=== PATIENT | female | born 1945 | race Caucasian/White ===

== ENCOUNTER 2018-11-04 09:03 | Outpatient (CLI) | payer MEDICARE, SELFPAY ==
[2018-11-04 11:17] LABS: HCT 42.6 % (36.0-46.0); HGB 13.5 g/dL (12.0-15.5); Mean Corp. HGB Concentration 31.7 g/dL (32.0-36.0); Mean Corpuscular Hemoglobin 29.7 pg (27.0-33.0); Mean Corpuscular Volume 93.8 fL (80-95); Mean Platelet Volume 12.2 fL (8.0-11.0); Platelet Count 237 x1000/uL (130-400); RBC 4.54 m/cumm (4.00-5.20); RBC Distribution Width 13.5 % (11.7-14.6)
[2018-11-04 11:31] LABS: ALT 26 U/L (12-78); AST 23 U/L (15-37); Albumin 3.6 g/dL (3.4-5.0); Alkaline Phosphatase 83 U/L (46-116); Anion Gap 6.9 mmol/L (3-11); BUN 18 mg/dL (7-18); CO2 30.1 mmol/L (21.0-32.0); CREATININE 0.71 mg/dL (0.55-1.02); Calcium 9.2 mg/dL (8.5-10.1); Chloride 105 mmol/L (98-107); Cholesterol 174 mg/dL (50-200); Glucose 84 mg/dL (70-100); HDL Cholesterol 66 mg/dL (40-60); LDL CHOLESTEROL 92 mg/dL (<100); Potassium 4.9 mmol/L (3.5-5.1); Sodium 142 mmol/L (136-145); Total Protein 6.6 g/dL (6.4-8.2); Triglyceride 51 mg/dL (30-150)
== END 2018-11-04 09:23 ==
PROVIDERS: PCP Family Medicine; Visit Provider Family Medicine
DX: R07.9 Chest pain, unspecified (principal); E78.5 Hyperlipidemia, unspecified; I10 Essential (primary) hypertension; M54.2 Cervicalgia
CPT/HCPCS: 36415; 80053; 80061; 83721; 85027

== ENCOUNTER 2019-07-10 02:22 | Outpatient (CLI) | payer MEDICARE, SELFPAY ==
[2019-07-10 11:43] LABS: ALT 30 U/L (12-78); AST 12 U/L (15-37); Albumin 3.4 g/dL (3.4-5.0); Alkaline Phosphatase 70 U/L (46-116); Anion Gap 6.9 mmol/L (3-11); BUN 20 mg/dL (7-18); Bilirubin, Total 1.1 mg/dL (0.2-1.0); CO2 29.1 mmol/L (21.0-32.0); CREATININE 0.73 mg/dL (0.55-1.02); Calcium 8.9 mg/dL (8.5-10.1); Calculated LDL 88 mg/dL; Chloride 108 mmol/L (98-107); Cholesterol 167 mg/dL (50-200); Glucose 91 mg/dL (70-100); HDL Cholesterol 72 mg/dL (40-60); Potassium 5.1 mmol/L (3.5-5.1); Sodium 144 mmol/L (136-145); Total Protein 6.4 g/dL (6.4-8.2); Triglyceride 37 mg/dL (30-150)
== END 2019-07-10 02:42 ==
PROVIDERS: PCP Family Medicine; Visit Provider Family Medicine
DX: I51.81 Takotsubo syndrome (principal)
CPT/HCPCS: 36415; 80053; 80061; 83721

== ENCOUNTER 2019-10-08 02:09 | Outpatient (CLI) | payer MEDICARE, SELFPAY ==
[2019-10-08 10:36] LABS: Abs Immature Grans 0.01 k/cumm (0.0-0.09); Absolute Basophil Count 0.05 k/cumm (0.0-0.2); Absolute Eosinophil Count 0.13 k/cumm (0.0-0.7); Absolute Lymphocyte Count 1.75 k/cumm (1.2-3.4); Absolute Monocyte Count 0.62 k/cumm (0.11-0.7); Absolute Neutrophil Count 3.55 k/cumm (1.2-6.7); Basophils % 0.8; Eosinophils % 2.1; HCT 43.8 % (36.0-46.0); Immature Grans % 0.2; Lymphocytes % 28.6; Mean Platelet Volume 12.1 fL (8.0-11.0); Monocytes % 10.1; Neutrophils % 58.2; Platelet Count 254 x1000/uL (130-400); RBC 4.66 m/cumm (4.00-5.20); RBC Distribution Width 14.3 % (11.7-14.6); White Blood Cell Count 6.11 k/cumm (4.4-10.8)
[2019-10-08 11:27] LABS: ESR 12 mm/hr (0-30)
[2019-10-08 11:56] LABS: ALT 32 U/L (14-59); AST 19 U/L (15-37); Albumin 3.8 g/dL (3.4-5.0); Alkaline Phosphatase 71 U/L (46-116); Anion Gap 4.9 mmol/L (3-11); BUN 11 mg/dL (7-18); Bilirubin, Total 0.9 mg/dL (0.2-1.0); CO2 30.1 mmol/L (21.0-32.0); CREATININE 0.72 mg/dL (0.55-1.02); Calcium 9.3 mg/dL (8.5-10.1); Chloride 108 mmol/L (98-107); Glucose 87 mg/dL (70-100); Potassium 5.7 mmol/L (3.5-5.1); Sodium 143 mmol/L (136-145); TSH (W/Ref FT4) 1.77 uIU/mL (0.36-3.74); Total Protein 6.6 g/dL (6.4-8.2)
[2019-10-09 14:34] LABS: Lyme Ab w Rflx to Lyme Confirm Negative (Negative)
== END 2019-10-08 02:29 ==
PROVIDERS: PCP Family Medicine; Visit Provider Family Medicine
DX: E78.5 Hyperlipidemia, unspecified (principal); R51 Headache; R79.89 Other specified abnormal findings of blood chemistry
CPT/HCPCS: 36415; 80053; 85652; 84443; 85025; 86618

== ENCOUNTER 2019-10-13 09:57 | Outpatient (CLI) | payer MEDICARE, SELFPAY ==
[2019-10-13 13:42] LABS: Potassium 5.1 mmol/L (3.5-5.1)
== END 2019-10-13 10:17 ==
LOC: LBO 09:59 → LOS 09:59
PROVIDERS: PCP Family Medicine; Visit Provider Family Medicine
DX: E87.5 Hyperkalemia (principal)
CPT/HCPCS: 36415; 84132

== ENCOUNTER 2020-01-28 11:42 | Outpatient (CLI) | payer MEDICARE, SELFPAY ==
[2020-01-28 13:28] LABS: ALT 29 U/L (14-59); AST 15 U/L (15-37); Albumin 3.9 g/dL (3.4-5.0); Alkaline Phosphatase 67 U/L (46-116); Anion Gap 7.8 mmol/L (3-11); BUN 21 mg/dL (7-18); Bilirubin, Total 1.4 mg/dL (0.2-1.0); CO2 29.2 mmol/L (21.0-32.0); CREATININE 0.69 mg/dL (0.55-1.02); Calcium 9.2 mg/dL (8.5-10.1); Calculated LDL 94 mg/dL (<100); Chloride 107 mmol/L (98-107); Cholesterol 178 mg/dL (<200); Glucose 81 mg/dL (74-106); HDL Cholesterol 75 mg/dL (40-60); Potassium 5.7 mmol/L (3.5-5.1); Sodium 144 mmol/L (136-145); Total Protein 6.6 g/dL (6.4-8.2); Triglyceride 48 mg/dL (<150)
== END 2020-01-28 12:02 ==
PROVIDERS: PCP Family Medicine; Visit Provider Family Medicine
DX: E78.5 Hyperlipidemia, unspecified (principal); I25.10 Atherosclerotic heart disease of native coronary artery without angina pectoris
CPT/HCPCS: 36415; 80053; 80061

== ENCOUNTER 2020-02-02 01:52 | Outpatient (CLI) | payer MEDICARE, SELFPAY ==
[2020-02-02 11:51] LABS: Potassium 5.1 mmol/L (3.5-5.1)
== END 2020-02-02 02:12 ==
PROVIDERS: PCP Family Medicine; Visit Provider Family Medicine
DX: E87.5 Hyperkalemia (principal)
CPT/HCPCS: 36415; 84132

== ENCOUNTER 2020-08-03 02:41 | Outpatient (CLI) | payer MEDICARE, SELFPAY ==
[2020-08-03 11:30] LABS: HCT 42.3 % (36.0-46.0); HGB 13.5 g/dL (11.2-15.7); MCH 29.9 pg (27.0-33.0); MCHC 31.9 % (32.0-36.0); MCV 93.8 fL (80-95); MPV 11.8 fL (8.0-11.0); Platelet Count 250 10^3/uL (130-400); RBC 4.51 10^6/uL (3.93-5.22); RDW 13.4 % (11.7-14.6); RDW-SD 45.6 fL; WBC 7.81 10^3/uL (4.4-10.8)
[2020-08-03 11:32] LABS: Bilirubin Negative (Negative); Blood Trace-intact (Negative); Clarity Clear (Clear); Glucose Negative (Negative); Ketones Negative (Negative); Leukocyte Esterase Negative (Negative); Nitrite Negative (Negative); Specific Gravity 1.015 (1.005-1.025); Urobilinogen 0.2 EU/dL (Up TO 0.2); pH 5.5 (5-8)
[2020-08-03 11:46] LABS: Bacteria Negative HPF (Negative); C & S Indicated? No; Casts Negative LPF (Negative); Crystals Negative HPF (Negative); Epithelial Cells Rare HPF (Negative); Mucus Trace (Negative); Other Cells Negative (Negative); WBC 0-2 HPF (0-5)
[2020-08-03 12:38] LABS: ALT 29 U/L (14-59); AST 21 U/L (15-37); Albumin 3.8 g/dL (3.4-5.0); Alkaline Phosphatase 67 U/L (46-116); Anion Gap 6.4 mmol/L (3-11); BUN 20 mg/dL (7-18); Bilirubin, Total 1.5 mg/dL (0.2-1.0); CO2 29.6 mmol/L (21.0-32.0); CREATININE 0.74 mg/dL (0.55-1.02); Calcium 9.3 mg/dL (8.5-10.1); Chloride 106 mmol/L (98-107); Glucose 63 mg/dL (74-106); Sodium 142 mmol/L (136-145); TSH (W/Ref FT4) 1.49 uIU/mL (0.36-3.74); Total Protein 6.6 g/dL (6.4-8.2)
== END 2020-08-03 03:01 ==
PROVIDERS: PCP Family Medicine; Visit Provider Family Medicine
DX: R52 Pain, unspecified (principal); R63.4 Abnormal weight loss; R10.9 Unspecified abdominal pain; E78.5 Hyperlipidemia, unspecified
CPT/HCPCS: 36415; 80053; 85027; 81003; 81015; 84443

== ENCOUNTER 2020-08-05 04:29 | Outpatient (CLI) | payer MEDICARE, SELFPAY ==
--- NOTE | 2020-08-05 06:45 | DI.CT_ITS ---
EXAM: CT ABDOMEN PELVIS W CLINICAL HISTORY: weight loss/ h/o endometrial pre cancer,ABD PAIN,R63.4,R10.9. TECHNIQUE: Imaging Protocol: Axial computed tomography images with coronal and sagittal reformatted images were created and reviewed CONTRAST MATERIAL: Intravenous: Omnipaque 350 Contrast volume:100 cc Oral: yes / COMPARISON: CR RT HIP COMPLETE AP PELVIS from 04/24/2017 CR RT HIP COMPLETE AP PELVIS from 05/22/2017 MR MRI - PELVIS WO CONTRAST from 07/18/2017 FINDINGS: ABDOMEN: Lung Bases: Normal where visualized. Liver: Normal density. No measurable mass. Gallbladder and biliary tract: No radiodense calculus or dilation. Pancreas: Normal density, no abnormal calcifications or inflammatory process. Spleen: Normal. Kidneys: Normal size, contour and axis. No radiodense stones or obstructive uropathy. No masses seen. Multiple tiny renal cysts. Adrenal glands: No masses seen. Abdominal Aorta: Abdominal portion non-dilated. PELVIS: There is a right hip prosthesis which creates artifact in the low pelvis. This obscures visualization of the right side of the bladder and perirectal region. Bladder: Symmetric distention, no gross wall thickening. Bowel: No obstruction or bowel wall thickening. Normal appendix. Normal quantity of stool. Peritoneal cavity: No ascites, collection or mesenteric inflammatory response. Bones: Hemangioma in the T12 vertebral body. The bones appear osteoporotic. There is a sclerotic le gela in the S2 segment, likely representing a bone island. There are degenerative changes of the SI joints as well as left hip joint. Reproductive organs: Status post hysterectomy. Ovaries not seen. Lymph nodes: Unremarkable. Impression: No evidence of mass, metastatic disease or other acute abnormality. Artifact from hip prosthesis florian its visualization of the low pelvis. RADIATION DOSE DELIVERED: Total DLP DATA REPOSITORY: All CT scans at this facility are submitted to the National Radiology Data Registry (NRDR) Dose Index Registry (DIR) with the [employer] (A[employer]). RADIATION OPTIMIZATION: All CT scans at this facility use at least one of these dose optimization te chniques: automated exposure control; mA and/or kV adjustment per patient size (includes targeted exa ms where dose is matched to clinical indication); or iterative reconstruction.
[2020-08-05] MEDS: Omnipaque 350 MG/ML 50 ML BTL PO (08:03)
[2020-08-05] MEDS: Omnipaque 350 MG/ML 100 ML BTL IJ (08:48)
[2020-08-05] MEDS: Normal Saline - Diluent 50 ML VIAL IV (08:49)
[2020-08-05] MEDS: Breeza Beverage 473 ML BTL PO (08:52)
[2020-08-05] MEDS: Normal Saline Flush 10 ML SYR IVP (08:53)
== END 2020-08-05 04:49 ==
PROVIDERS: PCP Family Medicine; Visit Provider Family Medicine
DX: R10.9 Unspecified abdominal pain (principal); R63.4 Abnormal weight loss
CPT/HCPCS: 74177; J3490; Q9967

== ENCOUNTER 2020-09-02 02:39 | Outpatient (CLI) | payer MEDICARE, SELFPAY ==
[2020-09-02 15:03] LABS: Bilirubin Negative (Negative); Blood Moderate (Negative); Clarity Clear (Clear); Glucose Negative (Negative); Ketones Negative (Negative); Leukocyte Esterase Negative (Negative); Nitrite Negative (Negative); Urobilinogen 0.2 EU/dL (Up TO 0.2)
[2020-09-02 15:24] LABS: Bacteria Negative HPF (Negative); C & S Indicated? No; Crystals Negative HPF (Negative); Epithelial Cells Negative HPF (Negative); Mucus Negative (Negative); RBC 0-2 HPF (0-2); WBC Negative HPF (0-5)
== END 2020-09-02 02:59 ==
PROVIDERS: PCP Family Medicine; Visit Provider Family Medicine
DX: R31.9 Hematuria, unspecified (principal)
CPT/HCPCS: 81003; 81015

== ENCOUNTER 2021-03-26 19:41 | Emergency (ER) | payer MEDICARE, SELFPAY ==
--- NOTE | 2021-03-26 19:45 | DI.RAD_ITS ---
Exam(s) XR FOOT RT COMPLETE EXAM: XR FOOT RT COMPLETE CLINICAL HISTORY: Fall, R/O Fracture. TECHNIQUE: 2D digital imaging was performed. COMPARISON: No exams were available for comparison FINDINGS: BONES: No acute fracture is present. No bony destructive lesion is seen. JOINTS: No dislocation present. Mild degenerative changes are seen at the 1st MTP joint. SOFT TISSUE: Normal. IMPRESSION: No acute fracture or dislocation. DATA REPOSITORY: RADIATION DOSE DELIVERED:
[2021-03-26 19:48] VITALS: BP 197/76; PULSE 72; RESP 14; TEMP 36.6; O2SAT 97
--- NOTE | 2021-03-26 19:57 | W.ED.GENAD ---
Discharge Plan Disposition Patient Disposition: HOME Condition: Stable Discharge Details Clinical Impression: Other sprain of right foot, initial encounter Primary Care Provider: Nicol Funes ED Provider: Sylvia Patel Home Meds and New Rx's Prescriptions: No Action acetaminophen [Tylenol Extra Strength] 500 MG tablet 2 tab PO BID PRN RF: 0 Betimol 15 ML drops 1 drp OU BID RF: 0 amoxicillin 500 mg tablet 2,000 mg PO ONCE Qty: 4 RF: 12 metoprolol succinate 25 mg tablet extended release 24 hr 25 mg PO DAILY Qty: 90 RF: 4 atorvastatin 10 mg tablet 10 mg PO DAILY Qty: 90 RF: 4 nitroglycerin [Nitrostat] 0.4 mg tablet, sublingual 0.4 mg Sublingual PRN MDD 3 Qty: 25 RF: 0 epinephrine [EpiPen 2-Jerry] 0.3 mg/0.3 mL auto-injector 0.3 mg IM ONCE Qty: 2 RF: 0 Discharge Instructions Instructions: Foot Sprain (ED) Additional Instructions: Rest, Ice, Compression, and Elevation. Use walking boot as directed for comfort. Please take Tylenol or Ibuprofen with food every 4-6 hours as needed for pain and swelling. The official radiology report is not back yet if it is different we will give you a call. Please follow-up with orthopedics if your foot continues to bother you after 2 weeks. Referrals: Nicol Funes MD, [place] [Primary Care Provider] - Christiano Pond MD [ [facility] STAFF PHYSICIAN] - Medical Decision Making 76-year-old female presents to the ER chief complaint of right foot pain status post trip and fall while gardening approximately 3 hours prior to arrival. Has tried Tylenol elevation and ice with little to no relief. Pain gets worse with ambulation and weight bearing. Complaining of pain at the ball of her foot no obvious deformity. Denies any other injuries or pain at this time COMPARISON: US RIGHT EXTREMITY ULTRASOUND 10/20/2017 9:24 AM FINDINGS: Bones/joints: No suspicious osseous lytic or blastic lesion. No acute fracture or dislocation. Alignment is preserved. There are mild degenerative changes of the right 1st MTP joint with mild degenerative joint space narrowing and subchondral sclerosis at the base of the proximal 1st phalanx. Incidentally noted bipartite tibial sesamoid. Soft tissues: No focal abnormality. IMPRESSION: 1. No acute osseous finding. 2. Mild degenerative changes of the right 1st MTP joint. Thank you for allowing us to participate in the care of your patient. Dictated and Authenticated by: Benjie Neil MD Patient placed in a ankle walking boot instructed on RICE procedures and follow-up with Ortho in 2 weeks if continued pain. I did discuss our radiologist will do an overread and will notify her if any discrepancies or differences. Patient verbalized understanding. HPI General Mode of arrival: wheelchair. Date/Time Provider Initiated Documentation: 03/26/21 19:41. Limitations to Documentation: no limitations. Information obtained by: patient. HPI Narrative: 76-year-old female presents to the ER chief complaint of right foot pain status post trip and fall while gardening approximately 3 hours prior to arrival. Has tried Tylenol elevation and ice with little to no relief. Pain gets worse with ambulation and weight bearing. Complaining of pain at the ball of her foot no obvious deformity. Denies any other injuries or pain at this time Related Data Home Medications Medication Instructions Recorded Confirmed acetaminophen [Tylenol Extra 2 tab PO BID PRN tab-cap 04/30/13 03/26/21 Strength] timolol [Betimol 0.5%] 1 drp OU BID drp 04/30/13 03/26/21 amoxicillin 500 mg tablet 2,000 mg PO ONCE #4 tab-cap 07/22/19 03/26/21 atorvastatin 10 mg tablet 10 mg PO DAILY #90 tab-cap 09/26/20 03/26/21 metoprolol succinate 25 mg 25 mg PO DAILY #90 tab 09/26/20 03/26/21 tablet,extended release 24 hr nitroglycerin 0.4 mg sublingual 0.4 mg SUBLINGUAL PRN #25 tab MDD 3 09/26/20 03/26/21 tablet epinephrine 0.3 mg/0.3 mL 0.3 mg IM ONCE #2 syringe 12/16/20 03/26/21 injection, auto-injector Previous Rx's Medication Instructions Recorded amoxicillin 500 mg tablet 2,000 mg PO ONCE #4 tab-cap 07/22/19 atorvastatin 10 mg tablet 10 mg PO DAILY #90 tab-cap 09/26/20 metoprolol succinate 25 mg 25 mg PO DAILY #90 tab 09/26/20 tablet,extended release 24 hr nitroglycerin 0.4 mg sublingual 0.4 mg SUBLINGUAL PRN #25 tab MDD 3 09/26/20 tablet epinephrine 0.3 mg/0.3 mL 0.3 mg IM ONCE #2 syringe 12/16/20 injection, auto-injector Allergies Allergy/AdvReac Type Severity Reaction Status Date / Time venom-wasp Allergy Severe ANAPHYLAXIS Unverified 09/22/20 14:48 oxytetracycline Allergy Unknown Unverified 03/26/21 19:51 morphine AdvReac Unknown INTOLERANT Unverified 03/26/21 19:51 General Stated Complaint: Orthopedic MARILYN: 4 Review of Systems All systems reviewed & are unremarkable except as noted in HPI and below Musculoskeletal Musculoskeletal: Reports arthralgias (Foot) [facility] Medical History Anxiety (05/14/13) Arthralgia Avascular necrosis of bone of right hip (07/22/17) Carpal tunnel syndrome 05/14/13 [facility] nerve conduction studies 2012, right hand pain ([facility]) Cervical pain (neck) (02/18/17) Chest pain (12/28/14) a. recurrent b. elevations in the past to a max troponin of 0.77 in our system, though Malina reports she has been >1 at [facility] Closed fracture of neck of right femur with delayed healing (06/26/17) Diverticulitis of colon 10/24/97 Dupuytrens contracture DVT (deep venous thrombosis) (10/19/17) Garden stage I closed subcapital fracture of right femur Glaucoma Grief (12/28/14) a. son from TBI, falling coming out of the hospital where he had been hospitalized for end-stage alcoholism (chronic ataxia) b. his birthday is this coming weekend (would have been 43) c. recent attendance at a also triggered grief Headache Hyperlipidemia Hypertension a. no evidence of CAD, but no cath x 10 years Iritis 03/11/09 Malignant neoplasm of skin squamous cell left cheek Osteopenia Sore throat Strep pharyngitis Takotsubo syndrome (01/07/15) recurrent episodes, cath [facility] normal coronaries 12/30/1407/05 [facility] normal stress echo Troponin level elevated (12/28/14) Uveitis (05/14/13) pos HLA B-27 Vasospastic angina Vitamin B 12 deficiency (11/05/14) Surgical History Abdominal hysterectomy H/O surgical procedure a. coronary cath 2001 and 2004 b. hysterectomy for precancerous lesions S/P abdominal hysterectomy Total replacement of hip [facility] 10/11 [facility] 03/11; SCREWS FOR FEMORAL NECK FX Family History Mother , 87 Essential hypertension Dementia Heart disease Hyperlipidemia Father , 69 Heart disease CHF (congestive heart failure) Hyperlipidemia Parkinson disease Sister Essential hypertension Bipolar disorder Depression Heart disease Hyperlipidemia Maternal Grandmother , 57 Stroke Grandfather No problems noted. Paternal Grandfather , 80 No problems noted. Paternal Grandmother , 80 Heart disease Son No problems noted. Son Depression Maternal Cousin Parkinson disease Social History Smoking/Tobacco Use Status: Never Second Hand Exposure: Yes Smoking risk assessment performed?: Yes Alcohol Intake: current Alcohol Intake frequency: a few times a month Alcohol type: wine Drug use: Never Substance use type: does not use Caregiver/Support person: No Household members: spouse Housing: house Pets and animals: Yes Pets and animals: cat(s) What is your relationship status?: How often do you talk on the phone with friends or family?: three or more times per week How often do you get together with friends or relatives?: twice per week How often do you attend confucianist or buddhist services?: decline to answer Do you belong to any clubs or organized social groups?: yes Panel score (0-1 are the most socially isolated patients): 3 What type of physical activity do you participate in: walking Duration: 15-30 minutes/day Frequency: 1-2 times per week Caryn/Zoroastrianism: None Special caryn needs: No Do you feel safe at home: Yes Do you feel safe in your relationship?: Yes Exam Extrem Right lower extremity: foot Details: normal capillary refill, normal to inspection, tenderness and toes with normal ROM Ankle/foot/toe images: 1. Tenderness with palpation Course Vital Signs Vital signs: Vital Signs Temperature 36.6 C 03/26/21 19:48 Pulse 72 03/26/21 19:48 Respiratory Rate 14 03/26/21 19:48 Blood Pressure 197/76 H 03/26/21 19:48 Pulse Oximetry 97 03/26/21 19:48 Temperature 36.6 C 03/26/21 19:48 Temperature Source Oral 03/26/21 19:48 Pulse 72 03/26/21 19:48 Respiratory Rate 14 03/26/21 19:48 Respiratory Effort Non-Labored 03/26/21 19:52 Blood Pressure 197/76 H 03/26/21 19:48 Blood Pressure Position Supine 03/26/21 19:48 Pulse Oximetry 97 03/26/21 19:48 Oxygen Delivery Method Room Air 03/26/21 19:48 Oxygen Flow Rate 0 03/26/21 19:48 Pain Level 5 03/26/21 19:52 Comment 03/26/21 19:48
--- NOTE | 2021-03-26 21:10 | DI.VRAD_ITS ---
PROCEDURE INFORMATION: Exam: XR Right Foot Exam date and time: 03/26/2021 7:53 PM Age: 76 years old Clinical indication: Pain; Foot; Right TECHNIQUE: Imaging protocol: XR Right foot. Views: 3 or more views. COMPARISON: US RIGHT EXTREMITY ULTRASOUND 10/20/2017 9:24 AM FINDINGS: Bones/joints: No suspicious osseous lytic or blastic lesion. No acute fracture or dislocation. Alignment is preserved. There are mild degenerative changes of the right 1st MTP joint with mild degenerative joint space narrowing and subchondral sclerosis at the base of the proximal 1st phalanx. Incidentally noted bipartite tibial sesamoid. Soft tissues: No focal abnormality. IMPRESSION: 1. No acute osseous finding. 2. Mild degenerative changes of the right 1st MTP joint. Dictated and Authenticated by: Benjie Neil MD. Ordering:JEN Ward MD
== END 2021-03-26 22:10 | disposition home or self-care (01) ==
PROVIDERS: Emergency Provider Registered Nurse Emergency; PCP Family Medicine
DX: S93.691A Other sprain of right foot, initial encounter (principal); W01.0XXA Fall on same level from slipping, tripping and stumbling without subsequent striking against object, initial encounter; Y93.H2 Activity, gardening and landscaping
CPT/HCPCS: 29515; 99283; 73630

== ENCOUNTER 2021-06-14 11:13 | Inpatient (IN) | payer MEDICARE, SELFPAY ==
[2021-06-14] VITALS (90 sets, daily range): BP systolic 107–193; BP diastolic 46–134; PULSE 16–68; RESP 8–28; TEMP 35.7–36.6; O2SAT 95–100
--- NOTE | 2021-06-14 11:15 | RT.EKG_ITS ---
APPROVED REPORT Exam: Resting ECG Reason for Exam: chest pain Patient Location: E HR:46 bpm ECG Measurements Heart Rate 46 AXIS MO 206 P 66 QRSd 88 QRS -14 QT 457 T 14 QTc 401 Conclusion Sinus bradycardia...rate< 60 Probable left atrial enlargement...P >50mS, <-0.10mV V1
--- NOTE | 2021-06-14 11:30 | DI.RAD_ITS ---
Exam(s) XR CHEST 2V PA LATERAL EXAM: XR CHEST 2V PA LATERAL CLINICAL HISTORY: central chest pain. TECHNIQUE: 2D digital imaging was performed. COMPARISON: CR CHEST 2 VIEWS PA,LAT from 12/28/2014 FINDINGS: Heart size is normal. The mediastinum is not widened. Lungs are clear. No infiltrates nor pleural effusions. IMPRESSION: No acute pulmonary findings. DATA REPOSITORY: RADIATION DOSE DELIVERED:
--- NOTE | 2021-06-14 11:33 | ED.GENADUL_ITS ---
Discharge Plan Disposition Patient Disposition: [facility] INPATIENT Condition: Stable Discharge Details Clinical Impression: Elevated troponin, History of coronary vasospasm Admit Date/Time: 06/14/21 16:26 Admit Provider: Jesus Reed Attending Provider: Jesus Reed Primary Care Provider: Nicol Funes ED Provider: Wallace Rae Discharge Data Discharge Date/Time-TO BE ENTERED AT DEPARTURE: 06/14/21 23:09 Medical Decision Making <Karthik Robles MD - Last Filed: 06/14/21 13:04> This is a pleasant and delightful 76-year-old female who presents on referral from urgent care. 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 She arrives to the ER for pressure 190/65, pulse 44 and beta-damon, 100% on room air, interactive and in no significant distress. Differential diagnosis in includes recurrent vasospasm/Takotsubo syndrome, followed by Dr. John Stern [facility]. Patient has a history of same including negative cardiac catheterizations in 2001 and 2004. Patient be given 324 mg of aspirin by the urgent care providers. She was placed on a front desk monitor, IV access established, referred for laboratory testing and chest x-ray. Patient does have a elevated indeterminate range troponin of 0.43 with history of it being as high as 2.4. Patient's pain improved. No further intervention required. This does seem most consistent with her previously known vasospasm and will advocate for admission with serial cardiac troponins and likely functional study such as echocardiogram. <Wallace Rae MD - Last Filed: 06/18/21 16:47> 1630 -- At shift change Dr. Robles noted the patient was admitted to the hospitalist service for coronary artery vasospasm with elevated troponin. Second EKG was obtained per protocol which was reviewed and interpreted by me: Please see report, sinus bradycardia 56 bpm, left axis deviation, no significant change compared to prior EKG today. --Spoke with patient about diagnostics and answered questions. Patient notes she has had some waxing and waning chest pain here. Chest pain is currently mild. She has refused nitroglycerin and notes that this has not helped her in the past. She does note oxygen has helped her discomfort in the past. I will apply nasal cannula oxygen. Given uptrending troponin and waxing and chest pain, I will discuss case with [facility] cardiology. 1800-- Called [facility] cardiology, spoke with Dr. Baker ethylbenzene converter helper and discussed ED presentation and course including diagnostics and I requested transfer. Transfer request refused secondary to capacity. He does recommend starting nitroglycerin as well as heparin infusion - will potentially have capacity tomorrow. 181 --I called [facility] transfer center requested transfer. [facility] to assess capacity at this time. Awaiting callback from oleo hasher and renderer. 182 -- Spoke with Dr. Leary, on-call oleo hasher and renderer at [facility], discussed ED presentation course including diagnostic, he agrees with treating with heparin and also recommends loading with Plavix and also treating with amlodipine. He will accept the patient in transfer but unfortunately there are no beds currently available and beds will likely not be available in the short-term. HPI <Karthik Robles MD - Last Filed: 06/14/21 13:04> General Mode of arrival: ambulatory . Date/Time Provider Initiated Documentation: 06/14/21 11:13 . Limitations to Documentation: no limitations . Information obtained by: patient . History of Present Illness 76 year old F presents to the emergency department with the chief complaint of Chest pain, described as similar to prior episodes, Quality is described as dull and constant, and is localized to the chest. Patient started experiencing this hour(s) and it has been constant. No relieving factors improve symptom(s), No exacerbating factors reported . Patient did receive the following treatments prior to arrival, none Related Data Home Medications Medication Instructions Recorded Confirmed acetaminophen [Tylenol Extra 2 tab PO BID PRN tab-cap 04/30/13 06/14/21 Strength] timolol [Betimol 0.5%] 1 drp OU QAM drp 04/30/13 06/14/21 amoxicillin 500 mg tablet 2,000 mg PO ONCE #4 tab-cap 07/22/19 06/14/21 atorvastatin 10 mg tablet 10 mg PO DAILY #90 tab-cap 09/26/20 06/14/21 metoprolol succinate 25 mg 25 mg PO DAILY #90 tab 09/26/20 06/14/21 tablet,extended release 24 hr nitroglycerin 0.4 mg sublingual 0.4 mg SUBLINGUAL PRN #25 tab MDD 3 09/26/20 06/14/21 tablet epinephrine 0.3 mg/0.3 mL 0.3 mg IM ONCE #2 syringe 12/16/20 06/14/21 injection, auto-injector aspirin [Aspir-81] 4 06/14/21 Previous Rx's Medication Instructions Recorded amoxicillin 500 mg tablet 2,000 mg PO ONCE #4 tab-cap 07/22/19 atorvastatin 10 mg tablet 10 mg PO DAILY #90 tab-cap 09/26/20 metoprolol succinate 25 mg 25 mg PO DAILY #90 tab 09/26/20 tablet,extended release 24 hr nitroglycerin 0.4 mg sublingual 0.4 mg SUBLINGUAL PRN #25 tab MDD 3 09/26/20 tablet epinephrine 0.3 mg/0.3 mL 0.3 mg IM ONCE #2 syringe 12/16/20 injection, auto-injector Allergies Allergy/AdvReac Type Severity Reaction Status Date / Time venom-wasp Allergy Severe ANAPHYLAXIS Verified 06/14/21 12:03 oxytetracycline Allergy Unknown Verified 06/14/21 12:03 morphine AdvReac Unknown INTOLERANT Verified 06/14/21 12:03 General Stated Complaint: Chest Pain MARILYN: 2 Review of Systems <Karthik Robles MD - Last Filed: 06/14/21 13:04> Narrative: Previous negative cardiac caths. Recent emotional stressors. Recent GI illness with stomach upset and diarrhea. No other recent illness. 8 systems reviewed and otherwise negative [facility] <Karthik Robles MD - Last Filed: 06/14/21 13:04> Medical History Anxiety (05/14/13) Arthralgia Avascular necrosis of bone of right hip (07/22/17) Carpal tunnel syndrome 05/14/13 [facility] nerve conduction studies 2012, right hand pain ([facility], [facility] Cervical pain (neck) (02/18/17) Chest pain (12/28/14) a. recurrent b. elevations in the past to a max troponin of 0.77 in our system, though Malina reports she has been >1 at [facility] Closed fracture of neck of right femur with delayed healing (06/26/17) Diverticulitis of colon 10/24/97 Dupuytrens contracture DVT (deep venous thrombosis) (10/19/17) Garden stage I closed subcapital fracture of right femur Glaucoma Grief (12/28/14) a. son from TBI, falling coming out of the hospital where he had been hospitalized for end-stage alcoholism (chronic ataxia) b. his birthday is this coming weekend (would have been 43) c. recent attendance at a also triggered grief Headache Hyperlipidemia Hypertension a. 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 coronary cath 2001 and 2004 b. hysterectomy for precancerous lesions S/P abdominal hysterectomy Total replacement of hip [facility]/11 [facility] 03/11; SCREWS FOR FEMORAL NECK FX Family History Mother , 87 Essential hypertension Dementia Heart disease Hyperlipidemia Father , 69 Heart disease CHF (congestive heart failure) Hyperlipidemia Parkinson disease Sister Essential hypertension Bipolar disorder Depression Heart disease Hyperlipidemia Maternal Grandmother , 57 Stroke Grandfather No problems noted. Paternal Grandfather , 80 No problems noted. Paternal Grandmother , 80 Heart disease Son No problems noted. Son Depression Maternal Cousin Parkinson disease Social History Smoking/Tobacco Use Status: Never Second Hand Exposure: Yes Smoking risk assessment performed?: Yes Alcohol Intake: current Alcohol Intake frequency: a few times a month Alcohol type: wine Drug use: Never Substance use type: does not use Caregiver/Support person: No Household members: spouse Housing: house Pets and animals: Yes Pets and animals: cat(s) What is your relationship status?: How often do you talk on the phone with friends or family?: three or more times per week How often do you get together with friends or relatives?: twice per week How often do you attend taoism or synagogue services?: decline to answer Do you belong to any clubs or organized social groups?: yes Panel score (0-1 are the most socially isolated patients): 3 What type of physical activity do you participate in: walking Duration: 15-30 minutes/day Frequency: 1-2 times per week Caryn/Church: None Special caryn needs: No Do you feel safe at home: Yes Do you feel safe in your relationship?: Yes Exam <Karthik Robles MD - Last Filed: 06/14/21 13:04> Narrative Exam Narrative: GEN: awake, alert, oriented 3. Pleasant, well groomed, interactive. HEAD: Normocephalic, atraumatic ENT: Mucous membranes moist, oropharynx unremarkable, External ear exam unremarkable EYES: PERRL, EOMI NECK: Full ROM, no DEVYN, no menigismus CHEST/RESP: Nontender, clear to auscultation bilateral, no wheeze/rhonchi/rales CARDIOVASCULAR: RRR, no murmur, rub mayank. 2+ Rad pulse bilateral ABDOMEN: Soft, nontender, no mass. +Bowel sounds EXT: Full ROM, no edema, no rash Neuro: Grossly normal neurologic exam, conversant, interactive. Psych: Speech fluent, thoughts congruent, affect normal Course <Karthik Robles MD - Last Filed: 06/14/21 13:04> Vital Signs Vital signs: Vital Signs Temperature 36.2 C L 06/14/21 11:18 Pulse 44 L 06/14/21 11:18 Respiratory Rate 19 06/14/21 11:18 Blood Pressure 193/65 H 06/14/21 11:18 Pulse Oximetry 100 06/14/21 11:18 Temperature 36.2 C L 06/14/21 11:18 Temperature Source Skin 06/14/21 11:18 Pulse 44 L 06/14/21 11:18 Respiratory Rate 19 06/14/21 11:18 Respiratory Effort Non-Labored 06/14/21 11:22 Blood Pressure 193/65 H 06/14/21 11:18 Blood Pressure Position Sitting 06/14/21 11:18 Pulse Oximetry 100 06/14/21 11:18 Oxygen Delivery Method Room Air 06/14/21 11:18 Oxygen Flow Rate 0 06/14/21 11:18 Pain Level 4 06/14/21 11:18 <Wallace Rae MD - Last Filed: 06/18/21 16:47> Critical Care Time Critical Care Time: Yes Total Critical Care Time: 38 Attestation: I spent greater than 38 minutes addressing this patient's immediate life threats. Please see MDM section of note. This time was spent engaged in work directly related to the patient's care, exclusive of separate procedures, and failure to initiate these interventions would have likely resulted in clinically significant or life threatening deterioration in the patient's condition.
[2021-06-14 11:40] LABS: Abs Immature Grans 0.02 10^3/uL (0.0-0.06); Absolute Eosinophil Count 0.12 10^3/uL (0.0-0.7); Absolute Lymphocyte Count 1.62 10^3/uL (1.2-3.4); Absolute Monocyte Count 0.61 10^3/uL (0.1-0.8); Basophils % 0.6; Eosinophils % 1.1; HCT 41.9 % (36.0-46.0); HGB 13.7 g/dL (11.2-15.7); Immature Grans % 0.2; MCH 30.7 pg (27.0-33.0); MCHC 32.7 % (32.0-36.0); MCV 93.9 fL (80-95); MPV 11.7 fL (8.0-11.0); Monocytes % 5.6; Neutrophils % 77.5; Nucleated RBC 0 %; Platelet Count 256 10^3/uL (130-400); RBC 4.46 10^6/uL (3.93-5.22); RDW 12.5 % (11.7-14.6); RDW-SD 43.4 fL; WBC 10.82 10^3/uL (4.4-10.8)
[2021-06-14 11:41] LABS: Absolute Basophil Count 0.06 10^3/uL (0.0-0.2); Absolute Neutrophil Count 8.39 10^3/uL (1.2-6.7)
[2021-06-14 11:56] LABS: ALT 28 U/L (14-59); AST 17 U/L (15-37); Albumin 3.8 g/dL (3.4-5.0); Alkaline Phosphatase 72 U/L (46-116); Anion Gap 4.6 mmol/L (3-11); BUN 16 mg/dL (7-18); Bilirubin, Total 1.2 mg/dL (0.2-1.0); CO2 30.4 mmol/L (21.0-32.0); CREATININE 0.7 mg/dL (0.55-1.02); Calcium 9.2 mg/dL (8.5-10.1); Chloride 105 mmol/L (98-107); Creatine Kinase 56 U/L (26-192); Glucose 116 mg/dL (74-106); Magnesium 2.1 mg/dL (1.8-2.4); Potassium 4.3 mmol/L (3.5-5.1); Sodium 140 mmol/L (136-145); Total Protein 7.5 g/dL (6.4-8.2)
[2021-06-14 11:58] LABS: Troponin I 0.43 ng/mL (<0.06)
[2021-06-14 13:58] LABS: Source Nasal/Nares
[2021-06-14 14:50] LABS: COVID-19 PCR Negative (Negative)
[2021-06-14 15:38] LABS: Troponin I 1.03 ng/mL (<0.06)
--- NOTE | 2021-06-14 15:45 | RT.EKG_ITS ---
APPROVED REPORT Exam: Resting ECG Reason for Exam: chest pain Patient Location: E HR:56 bpm ECG Measurements Heart Rate 56 AXIS IA 194 P 58 QRSd 92 QRS -32 QT 441 T -25 QTc 425 Conclusion Sinus bradycardia...rate< 60 Probable left atrial enlargement...P >50mS, <-0.10mV V1 Left axis deviation...QRS axis (-30,-90) no significant change compared to prior
--- NOTE | 2021-06-14 16:29 | HPE_ITS ---
Date of service: 06/14/21 Time of Service: 16:30 Assessment and Plan Assessment and plan (1) Chest pain: Status: Acute Assessment and plan: with elevated troponin history of: -recurrent stress cardiomyopathy, reports this is same presentation -nonobstructive coronary disease- established by cath in 2014, stress test february 23, 2021 at [facility] where she achieved a workload of over 10 MET's which was 150% predicted with no evidence of ST depression, she had elevated blood pressure which was present prior to and mild chest discomfort with exercise. -suspected endothelial dysfunction on beta damon last echo march 2016 the ventricular chamber size and wall thickness normal. normal global function. 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 declines nitro. troponin climbing, no acute EKG changes. she reports consistent with previous episodes of stress induced cardiomyopathy Dr Rae discussed the case with cardiology at [facility] who recommended heparin dri p, unfortunately they have no beds available. She will stay here for inpatient treatment while awaiting a bed. case discussed with DR Reed. History of Present Illness History of Present Illness Chief Complaint: chest pain Narrative: patient presents to the ED with substernal chest pain and epigastric pain that started last night after a tense town [place]quin meeting. she initially presented to urgent care and was referred here. she has had similar history in the past and reports negative catheterizations and diagnosed with takotsubo. EKG shows no acute st segment changes, first troponin elevated at 0.43, she received asa 324 mg at urgent care prior to arrival. the rest of her evaluation was unremarkable. she received a gi cocktail with improvement in her gi symptoms, she reports her chest pain has resolved. it is thought her symptoms are recurrent takotsubo episode as previous 3 other episodes. she is followed by [facility] cardiology. Review of Systems All systems reviewed & are unremarkable except as noted in HPI and below Cardiovascular Cardiovascular: Reports chest pain, Denies lightheadedness, Denies dyspnea and Denies dyspnea on exertion Respiratory Respiratory: Denies dyspnea and Denies dyspnea on exertion Gastrointestinal Gastrointestinal: Denies abdominal pain and Denies nausea [facility] Medical History Anxiety (05/14/13) Arthralgia Avascular necrosis of bone of right hip (07/22/17) Carpal tunnel syndrome 05/14/13 [facility] nerve conduction studies 2012, right hand pain ([place], [facility]) Cervical pain (neck) (02/18/17) Chest pain (12/28/14) a. recurrent b. elevations in the past to a max troponin of 0.77 in our system, though Malina reports she has been >1 at [facility] Closed fracture of neck of right femur with delayed healing (06/26/17) Diverticulitis of colon 10/24/97 Dupuytrens contracture DVT (deep venous thrombosis) (10/19/17) Garden stage I closed subcapital fracture of right femur Glaucoma Grief (12/28/14) a. son from TBI, falling coming out of the hospital where he had been hospitalized for end-stage alcoholism (chronic ataxia) b. his birthday is this coming (would have been 43) c. recent attendance at a also triggered grief Headache Hyperlipidemia Hypertension a. no evidence of CAD, but no cath x 10 years Iritis 03/11/09 Malignant neoplasm of skin squamous cell left cheek Osteopenia Sore throat Strep pharyngitis Takotsubo syndrome (01/07/15) recurrent episodes, cath [facility] normal coronaries 12/30/1407/05 [facility] normal stress echo Troponin level elevated (12/28/14) Uveitic glaucoma of both eyes, mild stage (~03/03/21) [facility] -03/03/21 Uveitis (05/14/13) pos HLA B-27 Vasospastic angina Vitamin B 12 deficiency (11/05/14) Surgical History Abdominal hysterectomy H/O surgical procedure a. coronary cath 2001 and 2004 b. hysterectomy for precancerous lesions S/P abdominal hysterectomy Total replacement of hip [facility] 10/11 [facility] 03/11; SCREWS FOR FEMORAL NECK FX Family History Mother , 87 Essential hypertension Dementia Heart disease Hyperlipidemia Father , 69 Heart disease CHF (congestive heart failure) Hyperlipidemia Parkinson disease Sister Essential hypertension Bipolar disorder Depression Heart disease Hyperlipidemia Maternal Grandmother , 57 Stroke Grandfather No problems noted. Paternal Grandfather , 80 No problems noted. Paternal Grandmother , 80 Heart disease Son No problems noted. Son Depression Maternal Cousin Parkinson disease Social History Smoking/Tobacco Use Status: Never Second Hand Exposure: Yes Smoking risk assessment performed?: Yes Alcohol Intake: current Alcohol Intake frequency: a few times a month Alcohol type: wine Drug use: Never Substance use type: does not use Caregiver/Support person: No Household members: spouse Housing: house Pets and animals: Yes Pets and animals: cat(s) What is your relationship status?: How often do you talk on the phone with friends or family?: three or more times per week How often do you get together with friends or relatives?: twice per week How often do you attend taoist or jainism services?: decline to answer Do you belong to any clubs or organized social groups?: yes Panel score (0-1 are the most socially isolated patients): 3 What type of physical activity do you participate in: walking Duration: 15-30 minutes/day Frequency: 1-2 times per week Caryn/Voodoo: None Special caryn needs: No Do you feel safe at home: Yes Do you feel safe in your relationship?: Yes Meds Allergies and Home Medications Allergies Allergy/AdvReac Type Severity Reaction Status Date / Time venom-wasp Allergy Severe ANAPHYLAXIS Verified 06/14/21 12:03 oxytetracycline Allergy Unknown Verified 06/14/21 12:03 morphine AdvReac Unknown INTOLERANT Verified 06/14/21 12:03 Home Medications Medication Instructions Recorded Confirmed Type acetaminophen [Tylenol Extra 2 tab PO BID PRN tab-cap 04/30/13 06/14/21 History Strength] timolol [Betimol 0.5%] 1 drp OU QAM drp 04/30/13 06/14/21 History amoxicillin 500 mg tablet 2,000 mg PO ONCE #4 tab-cap 07/22/19 06/14/21 Rx atorvastatin 10 mg tablet 10 mg PO DAILY #90 tab-cap 09/26/20 06/14/21 Rx metoprolol succinate 25 mg 25 mg PO DAILY #90 tab 09/26/20 06/14/21 Rx tablet,extended release 24 hr nitroglycerin 0.4 mg sublingual 0.4 mg SUBLINGUAL PRN #25 tab MDD 3 09/26/20 06/14/21 Rx tablet epinephrine 0.3 mg/0.3 mL 0.3 mg IM ONCE #2 syringe 12/16/20 06/14/21 Rx injection, auto-injector aspirin [Aspir-81] 4 06/14/21 History Exam Const General: cooperative, healthy appearing, comfortable and no acute distress (younger appearing than stated age) Nutritional Appearance: average body habitus Orientation: alert, awake and oriented x3 HENMT Head: normal to inspection, normocephalic and atraumatic Mouth: oral mucosae normal Resp Effort & Inspection: normal respiratory effort Auscultation: clear to auscultation bilaterally Cardio Rate: regular rate Rhythm: regular rhythm GI Inspection: normal to inspection Palpation: soft Auscultation: normal bowel sounds Skin General skin exam: no rashes or lesions noted Neuro General: patient alert, patient awake and patient oriented x3 Extrem General: normal to inspection and full ROM Results Labs Result diagrams: 06/15/21 06:10 06/15/21 06:10 Labs: Laboratory Results - last 24 hr 06/14/21 06/14/21 06/14/21 11:25 11:25 13:40 WBC 10.82 H RBC 4.46 Hgb 13.7 Hct 41.9 MCV 93.9 MCH 30.7 MCHC 32.7 RDW 12.5 Plt Count 256 MPV 11.7 H Immature Gran % 0.2 Neutrophils % 77.5 Lymphocytes % 15.0 Monocytes % 5.6 Eosinophils % 1.1 Basophils % 0.6 Nucleated RBC % 0 Absolute Neutrophils 8.39 H Absolute Lymphocytes 1.62 Absolute Monocytes 0.61 Absolute Eosinophils 0.12 Absolute Basophils 0.06 Sodium 140 Potassium 4.3 Chloride 105 Carbon Dioxide 30.4 Anion Gap 4.6 BUN 16 Creatinine 0.7 Estimated GFR/1.73 m2 >= 60.00 Glucose 116 H Calcium 9.2 Magnesium 2.1 Total Bilirubin 1.2 H AST 17 ALT 28 Alkaline Phosphatase 72 Creatine Kinase 56 Troponin I 0.43 H* Total Protein 7.5 Albumin 3.8 COVID-19 Source Nasal/Nares SARS-CoV-2 (PCR) Negative 06/14/21 15:10 WBC RBC Hgb Hct MCV MCH MCHC RDW Plt Count MPV Immature Gran % Neutrophils % Lymphocytes % Monocytes % Eosinophils % Basophils % Nucleated RBC % Absolute Neutrophils Absolute Lymphocytes Absolute Monocytes Absolute Eosinophils Absolute Basophils Sodium Potassium Chloride Carbon Dioxide Anion Gap BUN Creatinine Estimated GFR/1.73 m2 Glucose Calcium Magnesium Total Bilirubin AST ALT Alkaline Phosphatase Creatine Kinase Troponin I 1.03 H* Total Protein Albumin COVID-19 Source SARS-CoV-2 (PCR) Last Vital Signs Temp 36.6 C 06/14/21 14:20 Pulse 16 L 06/14/21 14:20 Resp 18 06/14/21 14:20 BP 135/66 06/14/21 14:20 Pulse Ox 97 06/14/21 14:20
[2021-06-14] MEDS: Clopidogrel 300 MG TAB PO (19:09)
[2021-06-14] MEDS: amLODIPine 5 MG TAB PO (19:09)
[2021-06-14 23:25] LABS: INR 1.1 (0.9-1.1); Prothrombin Time 10.8 sec (9.3-11.0)
[2021-06-14 23:45] LABS: PTT Activated 128.2 sec (21.0-27.5)
[2021-06-15] VITALS (71 sets, daily range): BP systolic 107–152; BP diastolic 52–73; PULSE 51–72; RESP 11–28; TEMP 36–36.2; O2SAT 94–97
[2021-06-15] MEDS: Acetaminophen 500 MG TAB 1000 MG PO (04:52)
[2021-06-15 06:49] LABS: Abs Immature Grans 0.02 10^3/uL (0.0-0.06); Absolute Basophil Count 0.06 10^3/uL (0.0-0.2); Absolute Eosinophil Count 0.18 10^3/uL (0.0-0.7); Absolute Lymphocyte Count 2.51 10^3/uL (1.2-3.4); Absolute Monocyte Count 0.67 10^3/uL (0.1-0.8); Absolute Neutrophil Count 5.01 10^3/uL (1.2-6.7); Basophils % 0.7; Eosinophils % 2.1; HCT 38.5 % (36.0-46.0); HGB 12.4 g/dL (11.2-15.7); Immature Grans % 0.2; Lymphocytes % 29.7; MCH 30.2 pg (27.0-33.0); MCHC 32.2 % (32.0-36.0); MCV 93.7 fL (80-95); MPV 11.8 fL (8.0-11.0); Monocytes % 7.9; Neutrophils % 59.4; Nucleated RBC 0 %; Platelet Count 209 10^3/uL (130-400); RBC 4.11 10^6/uL (3.93-5.22); RDW 12.7 % (11.7-14.6); WBC 8.45 10^3/uL (4.4-10.8)
[2021-06-15 07:15] LABS: Anion Gap 5.1 mmol/L (3-11); BUN 17 mg/dL (7-18); CO2 29.9 mmol/L (21.0-32.0); CREATININE 0.8 mg/dL (0.55-1.02); Calcium 8.9 mg/dL (8.5-10.1); Chloride 109 mmol/L (98-107); Glucose 100 mg/dL (74-106); Potassium 4.2 mmol/L (3.5-5.1); Sodium 144 mmol/L (136-145)
[2021-06-15 07:19] LABS: Troponin I 0.43 ng/mL (<0.06)
[2021-06-15] MEDS: Aspirin E.C. 81 MG TABEC PO (07:43)
[2021-06-15] MEDS: Atorvastatin 10 MG TAB PO (07:43)
[2021-06-15] MEDS: Metoprolol CR 25 MG TABCR PO (07:43)
--- NOTE | 2021-06-15 08:10 | DI.US_ITS ---
APPROVED REPORT EXAM: Comprehensive 2D, Doppler, and color-flow Echocardiogram Patient Location: In-Patient Room/Bed: [id number] Indications: Chest pain, H/o Takotsubo Other Information Study Quality: Good Conclusion Left Ventricle : The left ventricle is normal size. The left ventricular ejection fraction is within the normal range. There is normal left ventricular wall thickness. There is normal LV segmental wall motion. The left ventricular diastolic function is normal. LVEF is 62%. Right Ventricle : The right ventricle is normal size. The right ventricular systolic function is norm al. The RVSP is 24.6 mmHg. Atria : The left atrium size is normal. The right atrium size is normal. Valves: There are no hemodynamically significant valvular lesions. Great Vessels : The aortic root is normal in size. The ascending aorta is normal in size. Aortic arch is not well visualized. IVC is normal in size and collapses >50% with inspiration. Please see remainder of study for further details. Wall motion Left Ventricle The left ventricle is normal size. The left ventricular ejection fraction is within the normal range. There is normal left ventricular wall thickness. There is normal LV segmental wall motion. The left ventricular diastolic function is normal. There is no ventricular septal defect visualized. LVEF is 6 2%. Right Ventricle The right ventricle is normal size. The right ventricular systolic function is normal. The RVSP is 24 .6 mmHg. Atria The left atrium size is normal. The right atrium size is normal. The interatrial septum is intact wit h no evidence for an atrial septal defect. Aortic Valve The aortic valve is normal in structure. Aortic valve is trileaflet. There is no aortic valvular sten osis. No aortic regurgitation is present. Mitral Valve The mitral valve is normal in structure. No evidence of mitral valve stenosis. Trace mitral regurgita tion. Tricuspid Valve The tricuspid valve is normal in structure. There is no tricuspid valve stenosis. Trace tricuspid reg urgitation. Pulmonic Valve The pulmonary valve is normal in structure. There is no pulmonic valvular stenosis. There is no pulmo leighton valvular regurgitation. Great Vessels The aortic root is normal in size. The ascending aorta is normal in size. Aortic arch is not well vis ualized. IVC is normal in size and collapses >50% with inspiration. Pericardium There is no pericardial effusion. 2D Dimensions IVSD d PLAX 0.76 cm F: 0.6-1.0 LV Vol A2C d MOD 50.6 mL LVPW d PLAX 0.76 cm F: 0.6 - 1.0 LV Vol A4C d MOD 61.8 mL LVID d PLAX 4.34 cm F: 3.8 - 5.2 LA vol/ BSA A2C s A-L 27.2 mL/m2 LVDs 2.70 cm F: 2.2 - 3.5 LA vol/ BSA A4C s A-L 22.2 mL/m2 Ao Root d 2.80 cm F: 2.7 - 3.3 LA Vol/ BSA Biplane s A-L 25.1 mL/m2 RA Area A4C 10.84 cm2 LA Area A4C s MOD 14.01 cm2 RA Vol/ BSA A4C s A-L 15.1 mL/m2 LA Area A2C s MOD 15.82 cm2 Ao Asc Diam d 3.01 cm F: 2.3 - 3.1 LV EF A4C MOD 62.1 % LV EF Teichholz 67.8 % LV EF A2C MOD 63.3 % LVEF (Villanueva's) 62.94 % F: 54 - 74 LV EF Biplane MOD 62.9 % LV Volume 46.48 mL F: 46 - 106 SV 35.70 mL LV Volume Index 29.79 mL/m2 F: 29 - 61 SV Index 22.80 mL/m2 LV Vol Biplane MOD 56.7 mL FS 37.50 % M-Mode TAPSE 2.34 cm (M/F) >1.7 LV Diastology MV E' medial 0.077 (>0.07 m/s) E/A Ratio 0.8 LV E/e MED 9.55 (<14) MV E Vmax 0.74 (0.4-1.3 m/s) MV E' lateral 0.064 (>0.1 m/s) MV A Vmax 0.90 (0.4-1.3 m/s) LV E/e LAT 11.60 (<14) MV E/A Ratio 0.78 MV E/E' medial 9.58 MV E/E' lateral 11.61 Aortic Valve LVOT Area 3.11 cm2 AoV Area Vmax 2.76 cm2 LVOT Vmax 0.96 m/s AoV Area/ BSA (Vmax) 1.76 cm2/m2 LVOT Mean Mike. 0.63 m/s JAYJAY Mean Mike. 2.53 cm2 LVOT Peak Grad 3.7 mmHg JAYJAY Mean Mike. Index 1.62 cm2/m2 LVOT Mean Grad 1.9 mmHg LVOT VTI 0.260 m LVOT Diam s 1.95 cm AoV Vmax 1.08 m/s Velocity Ratio 0.88 AoV Mean Mike. 0.78 m/s AoV Peak Grad 4.7 mmHg LVOT SV 80.95 mL AoV Mean Grad 2.7 mmHg AoV VTI 0.256 m AoV Area VTI 3.16 cm2 AoV Area/ BSA (VTI) 2.02 cm/m2 Mitral Valve MV DT 254 (160-240 msec) MV PHT 74 msec MV Area PHT 2.98 cm2 MV VTI 0.322 m MV VTI Annulus 0.317 m MV Area VTI 2.47 (4.0-6.0 cm2) Pulmonary Valve PV Vmax 0.72 (0.5-1.5 m/s) RVOT Peak Gr. 1.22 mmHg PV Peak Grad 2.1 mmHg RVOT Mean Gr. 0.55 mmHg PV Mean Grad 1.0 mmHg RVOT VTI 0.125 m PV VTI 0.156 m RVOT Vmax 0.55 m/s Tricuspid Valve TR Peak Grad 21.5 mmHg TR Vmax 2.32 m/s RA Pressure 3.00 mmHg RVSP (TR) 24.6 mmHg
[2021-06-15] MEDS: Clopidogrel 75 MG TAB PO (09:39)
[2021-06-15] MEDS: Timolol 0.5% 5 ML BTL 1 ML OU (09:39)
--- NOTE | 2021-06-15 12:50 | PDOC.CMIN ---
- If Service Date Differs Date of service: 06/15/21 Time of Service: 12:50 Care Management Initial Assess REASON FOR HOSPITALIZATION:: Elevated troponins, Chest Pain PAST MEDICAL HISTORY/PAST SURGICAL HISTORY:: Anxiety (05/14/13). Arthralgia. Avascular necrosis of bone of right hip (07/22/17). Carpal tunnel syndrome. 05/14/13 [facility] nerve conduction studies 2013, right hand pain ([place], [facility] Cervical pain (neck) (02/18/17). Chest pain (12/28/14). a. recurrent. b. elevations in the past to a max troponin of 0.77 in our system, though Malina reports she has been >1 at [facility]. Closed fracture of neck of right femur with delayed healing (06/26/17). Diverticulitis of colon. 10/24/97. Dupuytrens contracture. DVT (deep venous thrombosis) (10/19/17). Garden stage I closed subcapital fracture of right femur. Glaucoma. Grief (12/28/14). a. son from TBI, falling coming out of the hospital where he had been hospitalized for end-stage alcoholism (chronic ataxia). b. his birthday is this coming weekend (would have been 43). c. recent attendance at a also triggered grief. Headache. Hyperlipidemia. Hypertension. a. no evidence of CAD, but no cath x 10 years. Iritis. 03/11/09. Malignant neoplasm of skin. squamous cell left cheek. Osteopenia. Sore throat. Strep pharyngitis. Takotsubo syndrome (01/07/15). recurrent episodes, cath [facility] normal coronaries 12/30/14. 07/05 [facility] normal stress echo. Troponin level elevated (12/28/14). Uveitic glaucoma of both eyes, mild stage (~03/03/21). [facility] -03/03/21. Uveitis (05/14/13). pos HLA B-27. Vasospastic angina. Vitamin B 12 deficiency (11/05/14). Surgical History . Abdominal hysterectomy. H/O surgical procedure. a. coronary cath 2001 and 2004. b. hysterectomy for precancerous lesions. S/P abdominal hysterectomy. Total replacement of hip. [facility] 10/11. 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 Malina shares that she has two children, one son , and one resides in [place]. She states that her has two children one in [place], and one in [place], all of whom are supportive. CURRENT FUNCTIONAL STATUS:: Malina will be transferred to [facility]. ADVANCE DIRECTIVES:: On file - Swapnil Strong agent, Sourav Angel is her alternate agent. Has patient been provided with info about the portal/API?: Yes Did the patient sign up for the portal?: Yes (Previously) CODE STATUS:: Full Code INSURANCE COVERAGE / FINANCIAL ISSUES:: Medicare. AARP PRIMARY CARE PHYSICIAN:: Nicol Funes DO POTENTIAL DISCHARGE NEEDS:: Outpatient follow up appointments. PATIENT/FAMILY EDUCATION NEEDS:: Review discharge instructions, discuss Ask Me Three. ANTICIPATED BARRIERS TO DISCHARGE:: None identified at this time. TRANSPORTATION:: Via private vehicle with family. PLAN:: [facility] transfer via EMS.
--- NOTE | 2021-06-15 14:22 | W.CARDCONSUL ---
Date of service: 06/15/21 Time of Service: 14:22 Assessment and Plan Assessment and plan (1) Chest pain: Status: Acute Assessment and plan: 1. Non-STEMI: Patient has a long history of multiple episodes of Takotsubo cardiomyopathy. 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 She is not currently on a calcium channel damon. Her troponin has peaked at around 1.0 and is now downtrending. She does not have any significant changes on ECG. Her echocardiogram today does not show any wall motion abnormalities (though contrast was not used). Interestingly, in 2014 during her last episode of stress cardiomyopathy she had mid cavity wall abnormalities but a normal apex and a normal base which is an abnormal pattern for Takotsubo's. I do not see the pattern today on echocardiogram. Her last cardiac catheterization was done in 2014 which showed nonobstructive disease. Given her age she is certainly at risk for development of coronary disease so I think this needs to be ruled out. She had a treadmill stress test done in February 2021 without imaging. She did have chest pain during the test but no significant EKG changes. Her echocardiogram today is not suggestive of stress cardiomyopathy despite her story and past history certainly pointing in that direction. I agree with dual antiplatelet therapy and heparin drip for at least 48 hours. I also concur with transfer to [facility] for possible catheterization versus stress test. Given [facility]'s perennial bed crunch, if she is unable to get transferred within a few days, I think would be reasonable for her to go home with close follow-up with her primary injection specialist and possible outpatient cath. Again, discharged home is certainly not my recommendation but may be the only viable option if we cannot get her to [facility]. Her echocardiogram is reassuring, her troponins are trending down, she does not have ongoing chest pain. 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 She is followed by Dr. John Stern at [facility] and last saw him in February of this year. Her last cath was in 2014 and showed nonobstructive disease. She has been treated for microvascular disease with a low-dose beta-damon as well as atorvastatin. She presents the emergency room at [facility] after developing substernal chest pain during a particularly intense [facility] meeting. She had no prodromal symptoms and no significant exertional intolerance prior to this event. She says that given her syndrome X, she limits her activity at baseline to avoid symptoms. She says her symptoms were very similar to her previous 3 episodes of stress-induced cardiomyopathy. In the ED she was found to have an elevated troponin at 1 which has since trended down to 0.43. Her EKGs did not show any significant T or ST abnormalities. She had an echocardiogram done this morning which did not show any significant wall motion abnormalities or a pattern consistent with Takotsubo's cardiomyopathy. She is now currently chest pain-free. She was given an aspirin and started on a heparin drip as well as started on Plavix. She was called in to be transferred to [facility] where she gets her cardiac care but they are currently full and she is awaiting possible transfer. Review of Systems All systems reviewed & are unremarkable except as noted in HPI and below [facility] Medical History Anxiety (05/14/13) Arthralgia Avascular necrosis of bone of right hip (07/22/17) Carpal tunnel syndrome 05/14/13 [facility] nerve conduction studies 2012, right hand pain ([facility], [facility]) Cervical pain (neck) (02/18/17) Chest pain (12/28/14) a. recurrent b. elevations in the past to a max troponin of 0.77 in our system, though Malina reports she has been >1 at [facility] Closed fracture of neck of right femur with delayed healing (06/26/17) Diverticulitis of colon 10/24/97 Dupuytrens contracture DVT (deep venous thrombosis) (10/19/17) Garden stage I closed subcapital fracture of right femur Glaucoma Grief (12/28/14) a. son from TBI, falling coming out of the hospital where he had been hospitalized for end-stage alcoholism (chronic ataxia) b. his birthday is this coming weekend (would have been 43) c. recent attendance at a also triggered grief Headache Hyperlipidemia Hypertension a. no evidence of CAD, but no cath x 10 years Iritis 03/11/09 Malignant neoplasm of skin squamous cell left cheek Osteopenia Sore throat Strep pharyngitis Takotsubo syndrome (01/07/15) recurrent episodes, cath [facility] normal coronaries 12/30/1407/05 [facility] normal stress echo Troponin level elevated (12/28/14) Uveitic glaucoma of both eyes, mild stage (~03/03/21) [facility] -03/03/21 Uveitis (05/14/13) pos HLA B-27 Vasospastic angina Vitamin B 12 deficiency (11/05/14) Surgical History Abdominal hysterectomy H/O surgical procedure a. coronary cath 2001 and 2004 b. hysterectomy for precancerous lesions S/P abdominal hysterectomy Total replacement of hip [facility] 10/11 [facility] 03/11; SCREWS FOR FEMORAL NECK FX Family History Mother , 87 Essential hypertension Dementia Heart disease Hyperlipidemia Father , 69 Heart disease CHF (congestive heart failure) Hyperlipidemia Parkinson disease Sister Essential hypertension Bipolar disorder Depression Heart disease Hyperlipidemia Maternal Grandmother , 57 Stroke Grandfather No problems noted. Paternal Grandfather , 80 No problems noted. Paternal Grandmother , 80 Heart disease Son No problems noted. Son Depression Maternal Cousin Parkinson disease Social History Smoking/Tobacco Use Status: Never Second Hand Exposure: Yes Smoking risk assessment performed?: Yes Alcohol Intake: current Alcohol Intake frequency: a few times a month Alcohol type: wine Drug use: Never Substance use type: does not use Caregiver/Support person: No Household members: spouse Housing: house Pets and animals: Yes Pets and animals: cat(s) What is your relationship status?: How often do you talk on the phone with friends or family?: three or more times per week How often do you get together with friends or relatives?: twice per week How often do you attend muslim or scientology services?: decline to answer Do you belong to any clubs or organized social groups?: yes Panel score (0-1 are the most socially isolated patients): 3 What type of physical activity do you participate in: walking Duration: 15-30 minutes/day Frequency: 1-2 times per week Caryn/Synagogue: None Special caryn needs: No Do you feel safe at home: Yes Do you feel safe in your relationship?: Yes Exam Const General: comfortable and no acute distress [facility] Head: normocephalic and atraumatic Eyes General: appearance normal, both eyes and all related structures Resp Effort & Inspection: normal respiratory effort Auscultation: clear to auscultation bilaterally Cardio Jugular venous pressure: no JVD Palpation: normal PMI Rate: regular rate Rhythm: regular rhythm Heart Sounds: S1 normal and S2 normal (No Murmurs, Rubs or Gallops) GI Palpation: soft Auscultation: normoactive bowel sounds Skin General skin exam: no rashes or lesions noted Extrem General: normal to inspection and no clubbing, cyanosis or edema Psych Appearance: grossly normal Results Last Vital Signs Temp 36 C L 06/15/21 11:30 Pulse 59 L 06/15/21 11:30 Resp 21 06/15/21 11:30 BP 107/52 L 06/15/21 11:30 Pulse Ox 97 06/15/21 11:30 Labs Result diagrams: 06/15/21 06:10 06/15/21 06:10 Labs: Laboratory Results - last 24 hr 06/14/21 06/14/21 06/14/21 13:40 15:10 20:55 WBC RBC Hgb Hct MCV MCH MCHC RDW Plt Count MPV Immature Gran % Neutrophils % Lymphocytes % Monocytes % Eosinophils % Basophils % Nucleated RBC % Absolute Neutrophils Absolute Lymphocytes Absolute Monocytes Absolute Eosinophils Absolute Basophils PT INR APTT Sodium Potassium Chloride Carbon Dioxide Anion Gap BUN Creatinine Estimated GFR/1.73 m2 Glucose Calcium Troponin I 1.03 H* 1.00 H* SARS-CoV-2 (PCR) Negative 06/14/21 06/15/21 06/15/21 22:55 01:30 06:10 WBC RBC Hgb Hct MCV MCH MCHC RDW Plt Count MPV Immature Gran % Neutrophils % Lymphocytes % Monocytes % Eosinophils % Basophils % Nucleated RBC % Absolute Neutrophils Absolute Lymphocytes Absolute Monocytes Absolute Eosinophils Absolute Basophils PT 10.8 INR 1.1 APTT 128.2 H* 48.8 H D Sodium 144 Potassium 4.2 Chloride 109 H Carbon Dioxide 29.9 Anion Gap 5.1 BUN 17 Creatinine 0.8 Estimated GFR/1.73 m2 >= 60.00 Glucose 100 Calcium 8.9 Troponin I 0.43 H* SARS-CoV-2 (PCR) 06/15/21 06/15/21 06:10 07:45 WBC 8.45 RBC 4.11 Hgb 12.4 Hct 38.5 MCV 93.7 MCH 30.2 MCHC 32.2 RDW 12.7 Plt Count 209 MPV 11.8 H Immature Gran % 0.2 Neutrophils % 59.4 Lymphocytes % 29.7 Monocytes % 7.9 Eosinophils % 2.1 Basophils % 0.7 Nucleated RBC % 0 Absolute Neutrophils 5.01 Absolute Lymphocytes 2.51 Absolute Monocytes 0.67 Absolute Eosinophils 0.18 Absolute Basophils 0.06 PT INR APTT 35.0 H D Sodium Potassium Chloride Carbon Dioxide Anion Gap BUN Creatinine Estimated GFR/1.73 m2 Glucose Calcium Troponin I SARS-CoV-2 (PCR)
--- NOTE | 2021-06-15 14:43 | CHAPLAIN ---
Malina was resting in bed when I visited. She said she is waiting to see the cabin furnishings installer. She's been told that she'd be transferred to [facility] or [facility], but then no beds were available. Not have a set plan is disconcerting for Malina, but she is patient. 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 Her had knee surgery recently but is now able to drive again, so he will be visiting. During our conversation, the of Malina's son, and his upcoming birthday did not come up, but according to Care Management notes, one of Malina's sons when he was 43 and his birthday is sometime this weekend.
--- NOTE | 2021-06-15 15:10 | DSE_ITS ---
Date of service: 06/15/21 Time of Service: 15:10 DS: Diagnosis Discharge Diagnosis (1) Chest pain: Status: Acute Discharge Plan Disposition Patient Disposition: [facility] Condition: Stable Discharge Details Reason For Visit: Elevated Troponins,Chest Pain Admit Date/Time: 06/14/21 16:26 Admit Provider: Jesus Reed Attending Provider: Jesus Reed Primary Care Provider: Nicol Funes [place] [facility] Hospital Course: This is a 76 year female with past medical history of recurrent stress cardiomyopathy, reports this is same presentation, nonobstructive coronary disease- established by cath in 2014, stress test february 23, 2021 at [facility], and suspected endothelial dysfunction on beta damon, who experienced 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 she continued to have chest pain so presented to the ED for evaluation. On exam EKG shows no acute st segment changes, her initial troponin is 0.43. she was given asa 324 mg prior to arrival at the urgent care she presented to first. labs and chest xray otherwise unremarkable. Her second troponin elevated to 1.03 and [facility] cardiology was contacted and recommended heparin drip, patient was declining nitroglycerin but did receive a gi cocktail that improved her pain from 10 to 2. Unfortunately there were no beds available and call was placed to [facility] who recommended a plavix load of 300 mg in addition to the heparin, they too had no beds. She was now painfree on the heparin and was admitted here under observation while awaiting an inpatient cardiology consult and echocardiogram. overnight troponin trended downwards to 0.4 and echo showed EF of 62% with no WMA's, and no hemodynamically significant valvular lesions. Dr Dias evaluated patient and was in agreement with current medication management and plan to transfer for catheterization. Her case was discussed today with Ruth Kuo POWER PRESS OPERATOR from cardiology and she was accepted under Dr Stern for cardiac catheterization, she was made NPO and paperwork completed. She has remained hemodynamically stable and painfree and being transported by ground EMS when a bed is available. discharge discussed with Dr Reed Home Meds and New Rx's Prescriptions: No Action acetaminophen [Tylenol Extra Strength] 500 MG tablet 2 tab PO BID PRN RF: 0 Betimol 15 ML drops 1 drp OU QAM RF: 0 amoxicillin 500 mg tablet 2,000 mg PO ONCE Qty: 4 RF: 12 metoprolol succinate 25 mg tablet extended release 24 hr 25 mg PO DAILY Qty: 90 RF: 4 atorvastatin 10 mg tablet 10 mg PO DAILY Qty: 90 RF: 4 nitroglycerin [Nitrostat] 0.4 mg tablet, sublingual 0.4 mg Sublingual PRN MDD 3 Qty: 25 RF: 0 epinephrine [EpiPen 2-Jerry] 0.3 mg/0.3 mL auto-injector 0.3 mg IM ONCE Qty: 2 RF: 0 aspirin [Aspir-81] 81 mg Tablet,Delayed Release (Dr/Ec) 4 RF: 0 Discharge Instructions Instructions: Heart Attack (DC) Additional Instructions: continue heparin drip en route cardiac monitoring, ACLS protocol Activity:: bedrest Diet:: NPO DS: Summary Time Spent with Patient providing and/or coordinating discharge services: Greater than 30 minutes Status at Discharge Functional status at discharge: independent ambulation Overall status at discharge: patient is not back to baseline Mental Status: mental status grossly normal Speech and Movement: speech and movement normal Mood: congruent mood Affect: normal affect Exam Const General: cooperative, healthy appearing, comfortable and no acute distress (younger appearing than stated age) Nutritional Appearance: average body habitus Orientation: alert, awake and oriented x3 HENMT Head: normal to inspection, normocephalic and atraumatic Mouth: oral mucosae normal Resp Effort & Inspection: normal respiratory effort Auscultation: clear to auscultation bilaterally Cardio Rate: regular rate Rhythm: regular rhythm GI Inspection: normal to inspection Palpation: soft Auscultation: normal bowel sounds Skin General skin exam: no rashes or lesions noted Neuro General: patient alert, patient awake and patient oriented x3 Extrem General: normal to inspection and full ROM Psych Mental Status: mental status grossly normal Speech and Movement: speech and movement normal Mood: congruent mood Affect: normal affect DS: Data Vitals/I&O Vitals and I&O: Vital Signs Temperature 36 C L 06/15/21 11:30 Temperature Source Temporal Artery Scan 06/15/21 11:30 Pulse 59 L 06/15/21 14:29 Pulse Rhythm Regular 06/15/21 07:30 Pulse 64 06/15/21 14:30 Respiratory Rate 15 06/15/21 14:30 Respiratory Effort 06/15/21 07:30 Respiratory Depth Normal 06/15/21 07:30 Respiratory Pattern Normal 06/15/21 07:30 Blood Pressure 133/72 06/15/21 14:29 Blood Pressure Mean 87 06/15/21 14:29 Blood Pressure Position Supine 06/14/21 23:28 Pulse Oximetry 96 06/15/21 14:30 Oxygen Delivery Method Room Air 06/15/21 11:30 Oxygen Flow Rate 0 06/15/21 11:30 Pain Level 3 06/15/21 05:52 Intake & Output 06/14/21 06/15/21 06/15/21 23:59 11:59 23:59 Intake Total 560.250 / 800.250 240 / 800.250 Output Total 925 / 925 Balance -364.750 / -124.750 240 / -124.750 Weight 57 kg 57 kg Intake: IV 80.250 / 80.250 Oral 480 / 720 240 / 720 Output: Urine 925 / 925 Other: Urine Color Yellow Urine Appearance Clear Urine Odor Strong Voiding Methods Bedside Commode Data Completed and Pending Labs on day of discharge: Labs from last 24 hours 06/15/21 06/15/21 06/15/21 17:00 07:45 06:10 WBC 8.45 RBC 4.11 Hgb 12.4 Hct 38.5 MCV 93.7 MCH 30.2 MCHC 32.2 RDW 12.7 Plt Count 209 MPV 11.8 H Immature Gran % 0.2 Neutrophils % 59.4 Lymphocytes % 29.7 Monocytes % 7.9 Eosinophils % 2.1 Basophils % 0.7 Nucleated RBC % 0 Absolute Neutrophils 5.01 Absolute Lymphocytes 2.51 Absolute Monocytes 0.67 Absolute Eosinophils 0.18 Absolute Basophils 0.06 PT INR APTT Pending 35.0 H D Sodium Potassium Chloride Carbon Dioxide Anion Gap BUN Creatinine Estimated GFR/1.73 m2 Glucose Calcium Troponin I 06/15/21 06/15/21 06/14/21 06:10 01:30 22:55 WBC RBC Hgb Hct MCV MCH MCHC RDW Plt Count MPV Immature Gran % Neutrophils % Lymphocytes % Monocytes % Eosinophils % Basophils % Nucleated RBC % Absolute Neutrophils Absolute Lymphocytes Absolute Monocytes Absolute Eosinophils Absolute Basophils PT 10.8 INR 1.1 APTT 48.8 H D 128.2 H* Sodium 144 Potassium 4.2 Chloride 109 H Carbon Dioxide 29.9 Anion Gap 5.1 BUN 17 Creatinine 0.8 Estimated GFR/1.73 m2 >= 60.00 Glucose 100 Calcium 8.9 Troponin I 0.43 H* 06/14/21 06/14/21 20:55 15:10 WBC RBC Hgb Hct MCV MCH MCHC RDW Plt Count MPV Immature Gran % Neutrophils % Lymphocytes % Monocytes % Eosinophils % Basophils % Nucleated RBC % Absolute Neutrophils Absolute Lymphocytes Absolute Monocytes Absolute Eosinophils Absolute Basophils PT INR APTT Sodium Potassium Chloride Carbon Dioxide Anion Gap BUN Creatinine Estimated GFR/1.73 m2 Glucose Calcium Troponin I 1.00 H* 1.03 H* [facility] Medical History Anxiety (05/14/13) Arthralgia Avascular necrosis of bone of right hip (07/22/17) Carpal tunnel syndrome 05/14/13 [facility] nerve conduction studies 2012, right hand pain ([facility], [facility] Cervical pain (neck) (02/18/17) Chest pain (12/28/14) a. recurrent b. elevations in the past to a max troponin of 0.77 in our system, though Malina reports she has been >1 at [facility] Closed fracture of neck of right femur with delayed healing (06/26/17) Diverticulitis of colon 10/24/97 Dupuytrens contracture DVT (deep venous thrombosis) (10/19/17) Garden stage I closed subcapital fracture of right femur Glaucoma Grief (12/28/14) a. son from TBI, falling coming out of the hospital where he had been hospitalized for end-stage alcoholism (chronic ataxia) b. his birthday is this coming weekend (would have been 43) c. recent attendance at a also triggered grief Headache Hyperlipidemia Hypertension a. no evidence of CAD, but no cath x 10 years Iritis 03/11/09 Malignant neoplasm of skin squamous cell left cheek Osteopenia Sore throat Strep pharyngitis Takotsubo syndrome (01/07/15) recurrent episodes, cath [facility] normal coronaries 12/30/1407/05 [facility] normal stress echo Troponin level elevated (12/28/14) Uveitic glaucoma of both eyes, mild stage (~03/03/21) [facility] -03/03/21 Uveitis (05/14/13) pos HLA B-27 Vasospastic angina Vitamin B 12 deficiency (11/05/14) Surgical History Abdominal hysterectomy H/O surgical procedure a. coronary cath 2001 and 2004 b. hysterectomy for precancerous lesions S/P abdominal hysterectomy Total replacement of hip [facility] 10/11 [facility] 03/11; SCREWS FOR FEMORAL NECK FX Family History Mother , 87 Essential hypertension Dementia Heart disease Hyperlipidemia Father , 69 Heart disease CHF (congestive heart failure) Hyperlipidemia Parkinson disease Sister Essential hypertension Bipolar disorder Depression Heart disease Hyperlipidemia Maternal Grandmother , 57 Stroke Grandfather No problems noted. Paternal Grandfather , 80 No problems noted. Paternal Grandmother , 80 Heart disease Son No problems noted. Son Depression Maternal Cousin Parkinson disease Social History Smoking/Tobacco Use Status: Never Second Hand Exposure: Yes Smoking risk assessment performed?: Yes Alcohol Intake: current Alcohol Intake frequency: a few times a month Alcohol type: wine Drug use: Never Substance use type: does not use Caregiver/Support person: No Household members: spouse Housing: house Pets and animals: Yes Pets and animals: cat(s) What is your relationship status?: How often do you talk on the phone with friends or family?: three or more times per week How often do you get together with friends or relatives?: twice per week How often do you attend scientologist or synagogue services?: decline to answer Do you belong to any clubs or organized social groups?: yes Panel score (0-1 are the most socially isolated patients): 3 What type of physical activity do you participate in: walking Duration: 15-30 minutes/day Frequency: 1-2 times per week Caryn/Mu-Ism: None Special caryn needs: No Do you feel safe at home: Yes Do you feel safe in your relationship?: Yes
[2021-06-15 17:53] LABS: PTT Activated 44.1 sec (21.0-27.5)
[2021-06-16 07:38] LABS: PTT Activated 48.8 sec (21.0-27.5)
== END 2021-06-15 19:55 | disposition short-term general hospital (02) | DRG 303 ==
LOC: ER 19:33 → ICU 23:17
PROVIDERS: Emergency Medicine; Internal Medicine; Nurse Practitioner Acute Care; Admitting Provider Family Medicine; Emergency Provider Student in an Organized Health Care Education/Training Program; PCP Family Medicine; Visit Provider Family Medicine
DX: I25.118 Atherosclerotic heart disease of native coronary artery with other forms of angina pectoris (principal); I51.81 Takotsubo syndrome; F41.9 Anxiety disorder, unspecified; Z86.718 Personal history of other venous thrombosis and embolism; E78.5 Hyperlipidemia, unspecified; I10 Essential (primary) hypertension; H40.89 Other specified glaucoma; E53.8 Deficiency of other specified B group vitamins; Z20.822 Contact with and (suspected) exposure to COVID-19
CPT/HCPCS: 36415; 80048; 80053; 82550; 87635; 87798; 93005; 93306; 96365; 96366; 96376; 99222; 99285; 71046; 83735; 84484; 85025; 85610; 85730; 86618; 93010; 99223; 99239

== ENCOUNTER 2021-06-14 15:43 | Outpatient (REF) | payer MEDICARE, SELFPAY ==
[2021-06-15 10:15] LABS: Lyme Ab w Rflx to Lyme Confirm Negative (Negative)
[2021-06-16 08:43] LABS: Anaplasma phagocytophilum Negative (Negative); B. miyamotoi PCR Negative (Negative); Babesia divergens/MO-1 Negative (Negative); Babesia duncani Negative (Negative); Babesia microti Negative (Negative); Ehrlichia chaffeensis Negative (Negative); Ehrlichia ewingii/canis Negative (Negative); Ehrlichia muris eauclairensis Negative (Negative)
== END 2021-06-14 15:44 | disposition home or self-care (01) ==
LOC: LBO 15:43
PROVIDERS: PCP Family Medicine; Visit Provider Physician Assistant
DX: S30.860A Insect bite (nonvenomous) of lower back and pelvis, initial encounter (principal); W57.XXXA Bitten or stung by nonvenomous insect and other nonvenomous arthropods, initial encounter
CPT/HCPCS: 87798; 86618

== ENCOUNTER → 2021-06-15 11:24 | Outpatient (BNVA) | payer MEDICARE, SELFPAY | PROVIDERS: PCP Family Medicine; Referring Provider Family Medicine; Visit Provider Internal Medicine Cardiovascular Disease | DX: R69 Illness, unspecified (principal) ==

== ENCOUNTER 2021-07-18 04:54 | Outpatient (CLI) | payer MEDICARE, SELFPAY ==
[2021-07-18 13:02] LABS: ALT 27 U/L (14-59); AST 17 U/L (15-37); Albumin 3.7 g/dL (3.4-5.0); Alkaline Phosphatase 78 U/L (46-116); Anion Gap 7.8 mmol/L (3-11); BUN 20 mg/dL (7-18); Bilirubin, Total 1.2 mg/dL (0.2-1.0); CO2 29.2 mmol/L (21.0-32.0); CREATININE 0.8 mg/dL (0.55-1.02); Calcium 9.5 mg/dL (8.5-10.1); Calculated LDL 98 mg/dL (<100); Chloride 108 mmol/L (98-107); Cholesterol 180 mg/dL (<200); Glucose 82 mg/dL (74-106); HDL Cholesterol 69 mg/dL (40-60); Potassium 5.7 mmol/L (3.5-5.1); Sodium 145 mmol/L (136-145); Total Protein 6.6 g/dL (6.4-8.2); Triglyceride 67 mg/dL (<150)
== END 2021-07-18 04:55 | disposition home or self-care (01) ==
LOC: LOS 04:55
PROVIDERS: PCP Family Medicine; Visit Provider Family Medicine
DX: I10 Essential (primary) hypertension (principal); E78.5 Hyperlipidemia, unspecified; I25.10 Atherosclerotic heart disease of native coronary artery without angina pectoris
CPT/HCPCS: 36415; 80053; 80061

== ENCOUNTER 2021-08-03 02:44 | Outpatient (CLI) | payer MEDICARE, SELFPAY ==
[2021-08-03 12:30] LABS: ALT 25 U/L (14-59); AST 18 U/L (15-37); Albumin 3.5 g/dL (3.4-5.0); Alkaline Phosphatase 67 U/L (46-116); Anion Gap 4.2 mmol/L (3-11); BUN 18 mg/dL (7-18); Bilirubin, Total 1.1 mg/dL (0.2-1.0); CO2 29.8 mmol/L (21.0-32.0); CREATININE 0.8 mg/dL (0.55-1.02); Calcium 9.2 mg/dL (8.5-10.1); Chloride 108 mmol/L (98-107); Glucose 86 mg/dL (74-106); Potassium 5.3 mmol/L (3.5-5.1); Sodium 142 mmol/L (136-145); Total Protein 6.2 g/dL (6.4-8.2)
== END 2021-08-03 02:45 | disposition home or self-care (01) ==
LOC: LOS 02:45
PROVIDERS: PCP Family Medicine; Visit Provider Family Medicine
DX: E87.5 Hyperkalemia (principal)
CPT/HCPCS: 36415; 80053

== ENCOUNTER → 2021-08-14 13:42 | Outpatient (BNVA) | payer MEDICARE, SELFPAY | PROVIDERS: PCP Family Medicine; Referring Provider Family Medicine; Visit Provider Internal Medicine Cardiovascular Disease | DX: I51.81 Takotsubo syndrome (principal); I25.10 Atherosclerotic heart disease of native coronary artery without angina pectoris; E78.5 Hyperlipidemia, unspecified; Z98.890 Other specified postprocedural states | CPT/HCPCS: 99204; 99215 ==

== ENCOUNTER 2022-03-12 01:17 | Outpatient (CLI) | payer MEDICARE, SELFPAY ==
--- NOTE | 2022-03-12 06:45 | DI.US_ITS ---
Exam(s) US ABDOMEN EXAM: US ABDOMEN CLINICAL HISTORY: epigastric abd pain,r10.9 TECHNIQUE: Ultrasound abdomen performed using standard protocol. COMPARISON: CT CT ABDOMEN PELVIS W from 08/05/2020 FINDINGS: LIVER: Normal size and echogenicity. No focal liver lesions are seen.. GALLBLADDER: No evidence of cholelithiasis. No evidence of wall thickening. No pericholecystic fluid identified. ESPOSITO'S SIGN: Negative. BILIARY SYSTEM: No intrahepatic or extrahepatic biliary ductal dilation. KIDNEYS: Kidneys are symmetric in size. There is a question of bilateral echogenic foci which could r epresent stones versus artifact. No stones are visible on the prior CT. There is a question mild di latation of the lower pole calyces of the left kidney. This could also represent parapelvic cysts. Multiple small cortical cysts were noted by CT which are not visible by ultrasound.. PANCREAS: Normal where visualized. SPLEEN: Not enlarged. ABDOMINAL AORTA AND IVC: Visualized portions normal caliber. ASCITES: None seen. IMPRESSION: Question of small bilateral nonobstructing renal calculi versus artifacts. Gallbladder normal. DATA REPOSITORY:
== END 2022-03-12 01:37 ==
PROVIDERS: PCP Family Medicine; Visit Provider Family Medicine
DX: R10.13 Epigastric pain (principal); R10.84 Generalized abdominal pain; N28.89 Other specified disorders of kidney and ureter
CPT/HCPCS: 76700

== ENCOUNTER 2022-05-15 10:46 | Outpatient (CLI) | payer MEDICARE, SELFPAY ==
[2022-05-15 13:33] LABS: ALT 27 U/L (14-59); AST 19 U/L (15-37); Albumin 3.6 g/dL (3.4-5.0); Alkaline Phosphatase 62 U/L (46-116); Anion Gap 4.5 mmol/L (3-11); BUN 19 mg/dL (7-18); Bilirubin, Total 1.9 mg/dL (0.2-1.0); CO2 31.5 mmol/L (21.0-32.0); CREATININE 0.7 mg/dL (0.55-1.02); Calcium 9.1 mg/dL (8.5-10.1); Calculated LDL 85 mg/dL (<100); Chloride 108 mmol/L (98-107); Cholesterol 179 mg/dL (<200); Glucose 108 mg/dL (74-106); HDL Cholesterol 82 mg/dL (40-60); Potassium 4.6 mmol/L (3.5-5.1); Sodium 144 mmol/L (136-145); Total Protein 6.8 g/dL (6.4-8.2); Triglyceride 60 mg/dL (<150)
== END 2022-05-15 10:47 | disposition home or self-care (01) ==
LOC: LOS 10:47
PROVIDERS: Visit Provider Family Medicine
DX: I25.10 Atherosclerotic heart disease of native coronary artery without angina pectoris (principal)
CPT/HCPCS: 36415; 80053; 80061

== ENCOUNTER 2022-06-15 21:42 | Outpatient (REF) | payer MEDICARE, SELFPAY ==
[2022-06-15 12:59] LABS: Bilirubin Negative (Negative); Blood Large (Negative); Clarity Clear (Clear); Glucose Negative (Negative); Ketones Negative (Negative); Leukocyte Esterase Moderate (Negative); Nitrite Positive (Negative); Specific Gravity 1.015 (1.005-1.025); Urobilinogen 0.2 EU/dL (Up TO 0.2); pH 7.5 (5-8)
[2022-06-15 13:13] LABS: Bacteria Many HPF (Negative); C & S Indicated? Yes; Casts Negative LPF (Negative); Crystals Negative HPF (Negative); Epithelial Cells Few HPF (Negative); Mucus Negative (Negative); RBC 20-50 HPF (0-2); WBC 20-50 HPF (0-5)
== END 2022-06-15 21:43 | disposition home or self-care (01) ==
LOC: LBN 21:42
PROVIDERS: Visit Provider Nurse Practitioner Family
DX: N39.0 Urinary tract infection, site not specified (principal)
CPT/HCPCS: 87077; 81003; 81015; 87086; 87186

== ENCOUNTER 2022-06-20 04:01 | Outpatient (CLI) | payer MEDICARE, SELFPAY ==
[2022-06-20 12:45] LABS: ALT 25 U/L (14-59); AST 16 U/L (15-37); Albumin 3.6 g/dL (3.4-5.0); Alkaline Phosphatase 61 U/L (46-116); BUN 25 mg/dL (7-18); CREATININE 0.9 mg/dL (0.55-1.02); Calcium 9.5 mg/dL (8.5-10.1); Chloride 106 mmol/L (98-107); Glucose 100 mg/dL (74-106); Potassium 4.4 mmol/L (3.5-5.1); Sodium 143 mmol/L (136-145); Total Protein 6.7 g/dL (6.4-8.2)
== END 2022-06-20 04:02 | disposition home or self-care (01) ==
LOC: LOS 04:01
PROVIDERS: PCP Family Medicine; Visit Provider Family Medicine
DX: R79.89 Other specified abnormal findings of blood chemistry (principal)
CPT/HCPCS: 36415; 80053

== ENCOUNTER → 2022-08-13 13:12 | Outpatient (BNVA) | payer MEDICARE, SELFPAY | PROVIDERS: PCP Family Medicine; Referring Provider Family Medicine; Visit Provider Internal Medicine Cardiovascular Disease | DX: I51.81 Takotsubo syndrome (principal); I25.10 Atherosclerotic heart disease of native coronary artery without angina pectoris | CPT/HCPCS: 99213 ==

== ENCOUNTER 2023-02-14 03:35 | Outpatient (CLI) | payer MEDICARE, SELFPAY ==
--- NOTE | 2023-02-14 07:30 | DI.DEXA_ITS ---
Exam(s) XR DEXA BONE DENSITY W/WO JASMIN EXAM: XR DEXA BONE DENSITY W/WO JASMIN CLINICAL HISTORY: back pain,SCREENING FOR OSTEOPOROSIS IN POSTMENOPAUSAL WOMAN,Z78.0 TECHNIQUE: COMPARISON: No exams were available for comparison FINDINGS: Lateral Spine Image: Unremarkable. No compression deformities identified. Left hip: Total T-Score: -1.7 Total Z-Score: 0.3 T- and Z-scores: Findings are consistent with osteopenia. Lumbar Spine: Total T-Score: -0.9 Total Z-Score: 1.7 T- and Z-scores: Within normal limits. Note is made of osteopenia in the L1 vertebral body with a T-s core of -1.3. IMPRESSION: No evidence of osteoporosis.
--- NOTE | 2023-02-14 14:24 | DI.RAD_ITS ---
Exam(s) XR LUMBAR SPINE COMPLETE EXAM: XR LUMBAR SPINE COMPLETE CLINICAL HISTORY: LOW BACK PAIN,,M54.50. TECHNIQUE: 2D digital imaging was performed of the lumbar spine. Five images were obtained. AP, la teral, right oblique, left oblique and L5-S1 spot views were obtained. COMPARISON: No exams were available for comparison FINDINGS: BONES: No fracture or destructive lesion. There are small endplate osteophytes throughout the lumbar spine. No facet hypertrophy identified. The patient has a right total hip replacement which is incom pletely imaged. DISKS: There is disc space narrowing at T12-L1, L1-L2 and L5-S1. ALIGNMENT: There is grade 1 spondylolisthesis of L4 on L5. There is no spondylolysis. SOFT TISSUE: Atherosclerosis is present. IMPRESSION: 1. No acute fracture or dislocation. 2. Degenerative changes in the lumbar spine. DATA REPOSITORY: RADIATION DOSE DELIVERED:
--- NOTE | 2023-02-14 14:25 | DI.RAD_ITS ---
Exam(s) XR THORACIC SPINE COMPLETE EXAM: XR THORACIC SPINE COMPLETE CLINICAL HISTORY: THORACIC BACK PAIN,? COMP FX,M54.6. TECHNIQUE: 2D digital imaging was performed of the thoracic spine. Three views were obtained. AP, swimmer's and lateral views were obtained. COMPARISON: No exams were available for comparison FINDINGS: BONES: There is no fracture or destructive lesion. Very mild degenerative changes are seen in the tho racic spine with multilevel disc space narrowing and endplate osteophytes. DISKS:Alignment is within normal limits. Disc space narrowing is seen in the thoracic spine. SOFT TISSUE: Visualized lungs are clear. IMPRESSION: 1. No acute fractures or subluxations in the thoracic spine. 2. Mild degenerative changes in the thoracic spine. DATA REPOSITORY: RADIATION DOSE DELIVERED:
== END 2023-02-14 03:55 ==
LOC: DI 03:35
PROVIDERS: PCP Family Medicine; Visit Provider Family Medicine
DX: M54.59 Other low back pain; Z78.0 Asymptomatic menopausal state; M51.34 Other intervertebral disc degeneration, thoracic region; Z96.641 Presence of right artificial hip joint; M51.37 Other intervertebral disc degeneration, lumbosacral region; M43.16 Spondylolisthesis, lumbar region; M85.88 Other specified disorders of bone density and structure, other site
CPT/HCPCS: 77080; 72072; 72110

== ENCOUNTER 2023-02-25 03:37 | Outpatient (CLI) | payer MEDICARE, SELFPAY ==
[2023-02-25 15:40] LABS: HCT 38.9 % (36.0-46.0); HGB 12.6 g/dL (11.2-15.7); MCH 30.4 pg (27.0-33.0); MCHC 32.4 % (32.0-36.0); MCV 94 fL (80-95); MPV 11.4 fL (8.0-11.0); Platelet Count 257 10^3/uL (130-400); RBC 4.14 10^6/uL (3.93-5.22); RDW 13.3 % (11.7-14.6); RDW-SD 45.9 fL; WBC 9.09 10^3/uL (4.4-10.8)
[2023-02-25 15:51] LABS: ESR 5 mm/hr (0-30)
[2023-02-25 16:02] LABS: Hemoglobin A1C 5.9 % (<5.7)
[2023-02-25 16:40] LABS: ALT 27 U/L (14-59); AST 18 U/L (15-37); Albumin 3.9 g/dL (3.4-5.0); Alkaline Phosphatase 77 U/L (46-116); Anion Gap 4.9 mmol/L (3-11); BUN 23 mg/dL (7-18); Bilirubin, Total 1.5 mg/dL (0.2-1.0); C-Reactive Protein 0.07 mg/dL (0.0-0.3); CO2 30.1 mmol/L (21.0-32.0); CREATININE 0.7 mg/dL (0.55-1.02); Calcium 9.7 mg/dL (8.5-10.1); Chloride 107 mmol/L (98-107); Estimated GFR 88.47 (mL/min/1.73m2); Glucose 99 mg/dL (74-106); Potassium 5.1 mmol/L (3.5-5.1); Sodium 142 mmol/L (136-145); TSH (W/Ref FT4) 1.14 uIU/mL (0.36-3.74); Total Protein 7.2 g/dL (6.4-8.2)
[2023-02-25 17:19] LABS: Vitamin B12 422 pg/mL (193-986)
[2023-02-27 13:18] LABS: ANA Interpretation Negative (Negative)
== END 2023-02-25 03:38 | disposition home or self-care (01) ==
PROVIDERS: PCP Family Medicine; Visit Provider Family Medicine
DX: M54.6 Pain in thoracic spine; E11.9 Type 2 diabetes mellitus without complications; M53.3 Sacrococcygeal disorders, not elsewhere classified; M54.50 Low back pain, unspecified; Z15.89 Genetic susceptibility to other disease
CPT/HCPCS: 36415; 80053; 85027; 85652; 86812; 82607; 83036; 84443; 86038; 86140

== ENCOUNTER 2023-03-04 01:44 | Outpatient (CLI) | payer MEDICARE, SELFPAY ==
[2023-03-08 17:00] LABS: HLA-B27 Result Positive
== END 2023-03-04 01:45 | disposition home or self-care (01) ==
LOC: LBO 01:44
PROVIDERS: PCP Family Medicine; Visit Provider Family Medicine
DX: M45.9 Ankylosing spondylitis of unspecified sites in spine (principal); M53.3 Sacrococcygeal disorders, not elsewhere classified; M54.50 Low back pain, unspecified; M54.6 Pain in thoracic spine; Z15.89 Genetic susceptibility to other disease
CPT/HCPCS: 36415; 86812

== ENCOUNTER 2023-03-07 10:32 | Outpatient (RCR) | payer MEDICARE, SELFPAY ==
--- NOTE | 2023-03-07 10:30 | HOLTER_ITS ---
APPROVED REPORT Conclusion This is a 48-hour Holter monitor ordered for palpitations Predominant rhythm was sinus with an average heart rate of 66. Minimum was 54, maximum 114 There were rare ventricular ectopic beats, very rare couplets, no triplets or ventricular tachycardia There were very rare atrial premature beats There was no atrial fibrillation, no SVT, no high-grade AV block, no pauses greater than 3 seconds Symptoms were reported which did not reliably correlate with any dysrhythmia
--- NOTE | 2023-03-07 12:30 | RT.EKG_ITS ---
APPROVED REPORT Exam: Resting ECG Reason for Exam: CHEST PAIN Patient Location: O HR:63 bpm ECG Measurements Heart Rate 63 AXIS OK 201 P 66 QRSd 95 QRS -23 QT 401 T 40 QTc 411 Conclusion Sinus rhythm...normal P axis, V-rate 50- 99 Probable left atrial enlargement...P >50mS, <-0.10mV V1 Borderline left axis deviation...QRS axis (-15,-29) Low voltage, precordial leads...precordial leads <1.0mV
== END 2023-03-24 23:59 | disposition home or self-care (01) ==
LOC: CARDOPNVT 10:32
PROVIDERS: PCP Family Medicine; Visit Provider Family Medicine
DX: R07.9 Chest pain, unspecified (principal); R00.2 Palpitations
CPT/HCPCS: 93227; 93005; 93010; 93225; 93226

== ENCOUNTER 2023-03-13 01:25 | Outpatient (CLI) | payer MEDICARE, SELFPAY ==
--- NOTE | 2023-03-13 07:45 | DI.MRI_ITS ---
Exam(s) MR LUMBAR SPINE WO EXAM: MR LUMBAR SPINE WO CLINICAL HISTORY: worsening symptoms, neuropathy, ? ankylosing spondYLOSIS,FAILED PT,? SPINAL. TECHNIQUE: Multiplanar multisequence MRI of the Lumbar spine was performed. COMPARISON: MR MRI - PELVIS WO CONTRAST from 07/18/2017 CR XR LUMBAR SPINE COMPLETE from 02/14/2023 CR XR DEXA BONE DENSITY W/WO JASMIN from 02/14/2023 FINDINGS: Bones: The last intervertebral disc space is designated the L5/S1 level for the numbering purpose of this examination. The vertebral body heights are well maintained. Alignment is satisfactory. Multip le T1 hyperintense 2 hyperintense foci are seen in the bones. This may be a combination of degenerat lashell change and fatty changes. Cord: The conus tip ends at the L1 level. It is of normal size and signal intensity. T12-L1: No disc herniations or bulges are present. No central spinal canal or neural foraminal stenos is. L1-2: Mild diffuse disc bulge. No central spinal canal or neural foraminal stenosis. L2-3: No disc herniations or bulges are present. No central spinal canal or neural foraminal stenosis . L3-4: There is a mild diffuse disc bulge. No significant central spinal canal stenosis is seen. Deg enerative changes of the facets are present. No significant neural foraminal stenosis is seen. L4-5: There is a mild diffuse disc bulge. There are hypertrophic changes of the facets and ligamentu m flavum. Mild narrowing of the central spinal canal is noted. Moderate bilateral neural foraminal stenosis is seen, right greater than left. L5-S1: There is a small central disc herniation. No significant central spinal canal stenosis is see n. There are degenerative changes of the facets bilaterally. There is moderate bilateral neural for aminal stenosis. Soft tissues: The visualized SI joints and sacrum are well maintained. There is diffuse hyperintense signal in the sacrum. The paraspinal soft tissues are unremarkable. IMPRESSION: 1. Multilevel degenerative changes in the lumbar spine resulting in central spinal canal and neural f oraminal stenosis as described above. 2. Multiple T1 and T2 hyperintense lesions which may represent multiple hemangiomas or diffuse fatty marrow replacement. DATA REPOSITORY:
== END 2023-03-13 01:45 ==
LOC: DI 01:25
PROVIDERS: PCP Family Medicine; Visit Provider Family Medicine
DX: G99.2 Myelopathy in diseases classified elsewhere (principal); M48.061 Spinal stenosis, lumbar region without neurogenic claudication; M54.16 Radiculopathy, lumbar region; Z15.89 Genetic susceptibility to other disease
CPT/HCPCS: 72148

== ENCOUNTER 2023-04-11 14:44 | Outpatient (CLI) | payer MEDICARE, SELFPAY ==
[2023-04-11 14:41] LABS: ESR 3 mm/hr (0-30)
[2023-04-11 15:00] LABS: C-Reactive Protein 0.08 mg/dL (0.0-0.3)
== END 2023-04-11 14:45 | disposition home or self-care (01) ==
LOC: LBO 14:47
PROVIDERS: PCP Family Medicine; Visit Provider Family Medicine
DX: R51.9 Headache, unspecified (principal); M85.88 Other specified disorders of bone density and structure, other site
CPT/HCPCS: 36415; 85652; 86140

== ENCOUNTER 2024-02-21 13:56 | Inpatient (IN) | payer MEDICARE, SELFPAY ==
[2024-02-21] VITALS (76 sets, daily range): BP systolic 147–198; BP diastolic 62–139; PULSE 40–85; RESP 11–28; TEMP 35.9–36.5; O2SAT 94–100
--- NOTE | 2024-02-21 13:45 | RT.EKG_ITS ---
APPROVED REPORT Exam: Resting ECG Reason for Exam: Heart problem Patient Location: E HR:43 bpm ECG Measurements Heart Rate 43 AXIS KS 206 P 65 QRSd 88 QRS -22 QT 446 T 32 QTc 375 Conclusion Sinus bradycardia. 43 no stemi
--- NOTE | 2024-02-21 14:03 | W.ED.GENAD ---
Discharge Plan Discharge Details Chief Complaint: Chest Pain Primary Care Provider: Nicol Funes ED Provider: Lloyd Monaco Home Meds and New Rx's Prescriptions: No Action Shingrix (PF) 50 mcg/0.5 mL suspension for reconstitution 0.5 ml IM ONCE Qty: 1 1RF Rx Instructions: as a single dose. Repeat in 2 months acetaminophen [Tylenol Extra Strength] 500 MG tablet 2 tab PO BID PRN Rx Instructions: 1000 MG BID PRN Betimol 15 ML drops 1 drp OU QAM Patient Comments: 12/17/17- Taking once daily. aj 8.2.17 pt states this has been increased to BID.HE nitroglycerin [Nitrostat] 0.4 mg tablet, sublingual 0.4 mg Sublingual PRN MDD 3 Qty: 25 0RF Rx Instructions: 1 TAB SL PRN amoxicillin 500 mg tablet 2,000 mg PO ONCE Qty: 16 2RF Rx Instructions: take 1 hour before procedure epinephrine [EpiPen 2-Jerry] 0.3 mg/0.3 mL auto-injector 0.3 mg IM ONCE Qty: 2 0RF Rx Instructions: Go immediately to the ER after injection atorvastatin 10 mg tablet 10 mg PO DAILY Qty: 90 12RF HPI General Date/Time Provider Initiated Documentation: 02/21/24 14:02. HPI Narrative: 79y F with PMH of CAD, cardiomyopathy, presents for evaluation of chest pain. she reports acute onset of non exertional chest pain radiating into throat. associated with diaphoresis, nausea. she reports symptoms started with diarrhea and that she had multiple bowel movements. chest pain radiates into throat not associated with SOB. reports that symptoms feel like prior episodes of cardiomyopathy. she says everything happened at once. onset about 45 minutes prior to arrival. Related Data Home Medications Medication Instructions Recorded Confirmed acetaminophen 500 mg tablet 2 tab PO BID PRN 04/30/13 02/11/24 (Tylenol Extra Strength) timolol 0.5 % eye drops (Betimol) 1 drp OU QAM 04/30/13 02/11/24 nitroglycerin 0.4 mg sublingual 0.4 mg sublingual PRN #25 tabs 11/06/21 02/11/24 tablet (Nitrostat) varicella-zoster glycoE [id number] 0.5 ml IM ONCE #1 ea 08/28/22 02/11/24 adj(PF) 50 mcg/0.5 mL IM susp, kit (Shingrix (PF)) amoxicillin 500 mg tablet 2,000 mg (4 x 500 mg) PO ONCE #16 05/08/23 02/11/24 tabs epinephrine 0.3 mg/0.3 mL 0.3 mg (0.3 mL) IM ONCE #2 SYRGS 05/15/23 02/11/24 injection, auto-injector (EpiPen 2-Jerry) atorvastatin 10 mg tablet 10 mg PO DAILY #90 tabs 10/04/23 02/11/24 Previous Rx's Medication Instructions Recorded nitroglycerin 0.4 mg sublingual 0.4 mg sublingual PRN #25 tabs 11/06/21 tablet (Nitrostat) varicella-zoster glycoE vacc-[id number] 0.5 ml IM ONCE #1 ea 08/28/22 adj(PF) 50 mcg/0.5 mL IM susp, kit (Shingrix (PF)) amoxicillin 500 mg tablet 2,000 mg (4 x 500 mg) PO ONCE #16 05/08/23 tabs epinephrine 0.3 mg/0.3 mL 0.3 mg (0.3 mL) IM ONCE #2 SYRGS 05/15/23 injection, auto-injector (EpiPen 2-Jerry) atorvastatin 10 mg tablet 10 mg PO DAILY #90 tabs 10/04/23 Allergies Allergy/AdvReac Type Severity Reaction Status Date / Time venom-wasp Allergy Severe ANAPHYLAXIS Verified 02/11/24 14:33 oxytetracycline Allergy Unknown Diarrhea Verified 02/11/24 14:33 morphine AdvReac Unknown INTOLERANT Verified 02/11/24 14:33 General Stated Complaint: Chest Pain MARILYN: 2 Exam Narrative Exam Narrative: Review of Systems: All systems reviewed & are unremarkable except as noted in HPI and below Well-developed, mild acute distress NCAT PERRL, normal conjunctiva Bradycardic Unlabored respiratory effort, clear breath sounds bilaterally Nondistended abdomen , nontender Extremities w/o deformity, no cyanosis, no edema No rashes or lesions. no focal neurologic deficits Appropriate mood and affect Course Vital Signs Vital signs: Vital Signs Temperature 36.5 C 02/21/24 14:00 Pulse 52 L 02/21/24 14:00 Respiratory Rate 17 02/21/24 14:00 Blood Pressure 193/66 H 02/21/24 14:00 Pulse Oximetry 98 02/21/24 14:00 Temperature 36.5 C 02/21/24 14:00 Temperature Source Temporal Artery Scan 02/21/24 14:00 Pulse 52 L 02/21/24 14:00 Respiratory Rate 17 02/21/24 14:00 Respiratory Effort Normal 02/21/24 14:02 Blood Pressure 193/66 H 02/21/24 14:00 Blood Pressure Position Sitting 02/21/24 14:00 Pulse Oximetry 98 02/21/24 14:00 Oxygen Delivery Method Room Air 02/21/24 14:00 Oxygen Flow Rate 0 02/21/24 14:00 Pain Level 7 02/21/24 14:00 Medical Decision Making Emergent evaluation of bradycardia. Initial differential includes cardiomyopathy, less likely ACS, viral illness. I reviewed the patient's medical record and reviewed her cardiology records at [facility]. Patient did have recent cards clinic visit. HTN noted but no new medications started. She is on timilol eye ggt but has taken this for the last 15 years. The bradycardia is new for her. She has provided me contact information for her heat treat technician. she was noted to have a dip into the 30s, but maintained BP And mental status. She was then moved to a resus room and placed on pacer pads. Plan for cardiac monitoring, lab work. Patient does not want nitroglycerin because it has not helped in the past. [address] Gomez ([phone]) , heat treat technician that follows the patient closely at [facility]. At this time [facility] is on diversion and not accepting transfer patients. The patient is very unlikely to be experiencing ACS given her extensive prior workup. Given her bradycardia that is new, she is not on any beta-damon, cardiology recommend observation, with heart rate monitoring and an echo. She recommends blood pressure treatment with possibly chlorthalidone and SHILA or an ARB.. I updated the patient and she is now having some vomiting. With vomiting her heart rate does go up. Her heat treat technician is recommending admission to this facility for monitoring since she cannot be transferred. Will admit the patient to this hospital facility for cardiac monitoring. [address] Vann, hospitalist. At this time he does not accept the patient for admission. Patient will be signed out to Dr Rae for further management. Medical Records Medical records reviewed: Yes I reviewed the patient's medical records. Lab Data Lab results reviewed: Yes I reviewed the patient's lab results. ECG Data Attestation: I personally reviewed and interpreted this ECG (s) as follows: Interpretation: sinus jose alfredo Quality:SDOH Health Related Social Needs: No Data to Display Critical Care Time Critical Care Time Critical Care Time: Yes Total Critical Care Time: 33 Attestation: CRITICAL CARE Upon my evaluation, this patient had a high probability of imminent or life-threatening deterioration due to cardiac dysrhythmia which required my direct attention, intervention, and personal management. I have personally provided 33 minutes of critical care time exclusive of time spent on separately billable procedures. Time includes review of laboratory data, radiology results, discussion with consultants, and monitoring for potential decompensation. 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 (Acute) Lumbar back pain with radiculopathy affecting lower extremity (Acute) HLA B27 (HLA B27 positive) (Acute) Thoracic back pain (Acute) Lumbar back pain (Acute) Elevated bilirubin (Acute) Foot pain, bilateral (Acute) Pelvic congestion (Acute) Bladder spasms (Acute) Thumb paresthesia, left (Acute) Hyperkalemia (Acute) Takotsubo syndrome (Acute 01/07/15) recurrent episodes, cath [facility] normal coronaries 12/30/1407/05 [facility] normal stress echo Chest pain (Acute) Uveitic glaucoma of both eyes, mild stage (Acute ~03/03/21) [facility] -03/03/21 Medial ankle sprain (Acute) Other sprain of right foot, initial encounter (Acute) Hematuria (Acute) Abdominal pain (Acute) Weight loss (Acute) CAD (coronary artery disease) (Chronic) Weakness of left hip (Acute) Vitamin B 12 deficiency (Chronic 11/05/14) Uveitis (Chronic 05/14/13) pos HLA B-27 Osteopenia (Chronic) DVT (deep venous thrombosis) (Chronic 10/19/17) Closed fracture of neck of right femur with delayed healing (Chronic 06/26/17) Cervical pain (neck) (Chronic 02/18/17) Avascular necrosis of bone of right hip (Chronic 07/22/17) Anxiety (Chronic 05/14/13) Hyperlipidemia (Chronic) Hypertension (Chronic) a. 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 son from TBI, falling coming out of the hospital where he had been hospitalized for end-stage alcoholism (chronic ataxia) b. his birthday is this coming weekend (would have been 43) c. recent attendance at a also triggered grief Troponin level elevated (12/28/14) Chest pain (12/28/14) a. recurrent b. elevations in the past to a max troponin of 0.77 in our system, though Malina reports she has been >1 at [facility] Surgical History S/P abdominal hysterectomy Total replacement of hip [facility] 10/11 [facility] 03/11; SCREWS FOR FEMORAL NECK FX Abdominal hysterectomy H/O surgical procedure a. coronary cath 2001 and 2004 b. hysterectomy for precancerous lesions Family History Mother , 87 Essential hypertension Dementia Heart disease Hyperlipidemia Father , 69 Heart disease CHF (congestive heart failure) Hyperlipidemia Parkinson disease Sister Essential hypertension Bipolar disorder Depression Heart disease Hyperlipidemia Maternal Grandmother , 57 Stroke Grandfather No problems noted. Paternal Grandfather , 80 No problems noted. Paternal Grandmother , 80 Heart disease Son No problems noted. Son Depression Maternal Cousin Parkinson disease Social History Smoking/Tobacco Use Status: Never Second Hand Exposure: Yes Smoking risk assessment performed?: Yes Alcohol Intake: current Alcohol Intake frequency: a few times a week Alcohol type: wine Drug use: Never Substance use type: does not use Caregiver/Support person: No Household members: spouse Housing: house Communication Needs: None Do you need help understanding health information?: Never Pets and animals: Yes Pets and animals: cat(s) Sexually active: No Do you think of yourself as: straight/heterosexual Current gender identity: female What is your relationship status?: How often do you talk on the phone with friends or family?: three or more times per week How often do you get together with friends or relatives?: once per week Do you belong to any clubs or organized social groups?: yes Panel score (0-1 are the most socially isolated patients): 3 What type of physical activity do you participate in: walking Duration: 15-30 minutes/day Frequency: 3-4 times per week Caryn/Mormon: None Special caryn needs: No Seatbelt use: always Drive intox or ride w/intox form setter/driver: No Do you feel safe at home: Yes Do you feel safe in your relationship?: Yes PAWSS Have you Been Recently Intoxicated or Drunk Within the Last 30 days?: No Have you Ever Experienced Previous Episodes of Alcohol Withdrawal?: No Have you ever Experienced Withdrawal Seizures?: No Have you ever Experienced Delirium Tremens(DT)s?: No Have you ever undergone Alcohol Rehabilitation Treatment (i.e, inpt ot outpatient treatment programs)?: No Have you ever Experienced Blackouts?: No Have you ever Combined Alcohol with other Downers within the last 90 days?: No Have you ever Combined Alcohol with any other Substance of Abuse during the last 90 days?: No Result: 0
[2024-02-21 14:29] LABS: Abs Immature Grans 0.03 10^3/uL (0.0-0.06); Absolute Basophil Count 0.08 10^3/uL (0.0-0.2); Absolute Lymphocyte Count 2.77 10^3/uL (1.2-3.4); Absolute Monocyte Count 0.89 10^3/uL (0.1-0.8); Absolute Neutrophil Count 7.79 10^3/uL (1.2-6.7); Basophils % 0.7; Eosinophils % 1.4; HCT 39.7 % (36.0-46.0); HGB 12.8 g/dL (11.2-15.7); Immature Grans % 0.3; Lymphocytes % 23.6; MCH 30.9 pg (27.0-33.0); MCHC 32.2 % (32.0-36.0); MCV 96 fL (80-95); MPV 11.6 fL (8.0-11.0); Monocytes % 7.6; Neutrophils % 66.4; Platelet Count 326 10^3/uL (130-400); RBC 4.14 10^6/uL (3.93-5.22); RDW 13.8 % (11.7-14.6); RDW-SD 48.3 fL; WBC 11.73 10^3/uL (4.4-10.8)
[2024-02-21 14:30] LABS: Absolute Eosinophil Count 0.16 10^3/uL (0.0-0.7)
[2024-02-21] MEDS: Aspirin 81 MG CHEW 324 MG CH (14:31)
[2024-02-21 14:43] LABS: Prothrombin Time 10.5 sec (9.1-11.1)
[2024-02-21 14:58] LABS: ALT 29 U/L (14-59); AST 20 U/L (15-37); Albumin 3.7 g/dL (3.4-5.0); Alkaline Phosphatase 71 U/L (46-116); Anion Gap 8.9 mmol/L (3-11); BUN 19 mg/dL (7-18); Bilirubin, Total 1.5 mg/dL (0.2-1.0); CO2 28.1 mmol/L (21.0-32.0); CREATININE 0.8 mg/dL (0.55-1.02); Calcium 9.3 mg/dL (8.5-10.1); Chloride 105 mmol/L (98-107); Glucose 118 mg/dL (74-106); Magnesium 2.2 mg/dL (1.8-2.4); NT-proBNP 61 pg/mL (<300); Potassium 3.9 mmol/L (3.5-5.1); Sodium 142 mmol/L (136-145); Troponin I < 50 ng/L (< or =60)
--- NOTE | 2024-02-21 15:39 | NUR.NOTE ---
Nursing Note: pt rang call ortega to report chest pressure is now radiating outward from just sternal area. No other symptoms at this time. Provider made aware; no new orders at this time.
[2024-02-21] MEDS: Ondansetron 4 MG/2 ML VIAL IVP (16:19)
[2024-02-21] MEDS: Famotidine 20 MG/2 ML VIAL IVP (16:19)
[2024-02-21] MEDS: ACETAMINOPHEN 1,000 MG/100 ML BTL 400 MG IVPB ×2 (16:26→23:26)
[2024-02-21 17:39] LABS: Troponin I 413 ng/L (< or =60)
--- NOTE | 2024-02-21 17:45 | RT.EKG_ITS ---
APPROVED REPORT Exam: Resting ECG Reason for Exam: bradycardia Patient Location: E HR:68 bpm ECG Measurements Heart Rate 68 AXIS CA 178 P -61 QRSd 90 QRS -24 QT 405 T 58 QTc 431 Conclusion Ectopic atrial rhythm...abnormal P axis, normal rate
--- NOTE | 2024-02-21 18:22 | ED.PROG_ITS ---
Date of service: 02/21/24 Time of Service: 18:23 Medical Decision Making I spoke with Dr. Gomez, cardiology at [facility], I provided update I spoke with Dr. Zelaya, Cardiology at [facility], discussed ED presentation and course, he recommends CTA to rule out dissection. He agrees with need to transfer once bed available. He does not recommend heparin at this time. He does recommend nitroglycerin if patient is willing to take. Dr. Zelaya notes that unfortunately [facility] cannot accept the patient in transfer due to capacity. They were unable to list the patient due to capacity. He recommended contacting other tertiary care facilities. I contacted [facility] transfer center requested transfer. I spoke with fitting room checker on-call, Dr. Xie, discussed ED presentation and course, he will accept the patient in transfer. He does not recommend any agents that would result in preload reduction. Unfortunately no beds immediately available and recommends hospitalizing until bed available for transfer. He does recommend calling back for any clinical decline including hemodynamic instability, or significant elevation in troponin. I spoke with Dr. Vann and updated him as to course. He will admit the patient. [id number] cardiac ultrasound was performed by Dr. Whitfield. I updated Dr. Guerrero that CTA was interpreted as mild atherosclerotic changes with no evidence of aortic dissection or aneurysm. No significant large vessel arterial stenosis or occlusion. Lab Data Lab results reviewed: Yes I reviewed the patient's lab results. Labs: Laboratory Tests Range/Units 02/21/24 02/21/24 02/21/24 14:20 14:20 14:20 WBC (4.4-10.8) 10^3/uL 11.73 H RBC (3.93-5.22) 10^6/uL 4.14 Hgb (11.2-15.7) g/dL 12.8 Hct (36.0-46.0) % 39.7 MCV (80-95) fL 96 H MCH (27.0-33.0) pg 30.9 MCHC (32.0-36.0) % 32.2 RDW (11.7-14.6) % 13.8 Plt Count (130-400) 10^3/uL 326 MPV (8.0-11.0) fL 11.6 H Immature Gran % 0.3 Neutrophils % 66.4 Lymphocytes % 23.6 Monocytes % 7.6 Eosinophils % 1.4 Basophils % 0.7 Nucleated RBC % (0.0-0.3) % 0.0 Absolute Neutrophils (1.2-6.7) 10^3/uL 7.79 H Absolute Lymphocytes (1.2-3.4) 10^3/uL 2.77 Absolute Monocytes (0.1-0.8) 10^3/uL 0.89 H Absolute Eosinophils (0.0-0.7) 10^3/uL 0.16 Absolute Basophils (0.0-0.2) 10^3/uL 0.08 PT (9.1-11.1) sec 10.5 INR (0.9-1.1) 1.0 APTT (23.6-32.8) sec 23.0 L Sodium (136-145) mmol/L 142 Potassium (3.5-5.1) mmol/L 3.9 Chloride (98-107) mmol/L 105 Carbon Dioxide (21.0-32.0) mmol/L 28.1 Anion Gap (3-11) mmol/L 8.9 BUN (7-18) mg/dL 19 H Creatinine (0.55-1.02) mg/dL 0.8 Est GFR (CKD-EPI 2020) (mL/min/1.73m2) 74.90 Glucose (74-106) mg/dL 118 H Calcium (8.5-10.1) mg/dL 9.3 Magnesium (1.8-2.4) mg/dL 2.2 Total Bilirubin (0.2-1.0) mg/dL 1.5 H AST (15-37) U/L 20 ALT (14-59) U/L 29 Alkaline Phosphatase (46-116) U/L 71 Troponin I Cancelled < 50 NT-Pro-B Natriuret Pep Cancelled 61 Total Protein (6.4-8.2) g/dL 7.0 Albumin (3.4-5.0) g/dL 3.7 Range/Units 02/21/24 17:14 WBC (4.4-10.8) 10^3/uL RBC (3.93-5.22) 10^6/uL Hgb (11.2-15.7) g/dL Hct (36.0-46.0) % MCV (80-95) fL MCH (27.0-33.0) pg MCHC (32.0-36.0) % RDW (11.7-14.6) % Plt Count (130-400) 10^3/uL MPV (8.0-11.0) fL Immature Gran % Neutrophils % Lymphocytes % Monocytes % Eosinophils % Basophils % Nucleated RBC % (0.0-0.3) % Absolute Neutrophils (1.2-6.7) 10^3/uL Absolute Lymphocytes (1.2-3.4) 10^3/uL Absolute Monocytes (0.1-0.8) 10^3/uL Absolute Eosinophils (0.0-0.7) 10^3/uL Absolute Basophils (0.0-0.2) 10^3/uL PT (9.1-11.1) sec INR (0.9-1.1) APTT (23.6-32.8) sec Sodium (136-145) mmol/L Potassium (3.5-5.1) mmol/L Chloride (98-107) mmol/L Carbon Dioxide (21.0-32.0) mmol/L Anion Gap (3-11) mmol/L BUN (7-18) mg/dL Creatinine (0.55-1.02) mg/dL Est GFR (CKD-EPI 2020) (mL/min/1.73m2) Glucose (74-106) mg/dL Calcium (8.5-10.1) mg/dL Magnesium (1.8-2.4) mg/dL Total Bilirubin (0.2-1.0) mg/dL AST (15-37) U/L ALT (14-59) U/L Alkaline Phosphatase (46-116) U/L Troponin I 413 H* NT-Pro-B Natriuret Pep Total Protein (6.4-8.2) g/dL Albumin (3.4-5.0) g/dL Quality:[facility] Health Related Social Needs: No Data to Display Sign Out Sign Out Data: Sign Out Comment: extensive cardiac history of takotsubo cardiomyopathy followed by [facility] cards. Presenting with symptoms consistent with prior episodes of cardiomyopathy. She is bradycardic in the 40s which is new for her. Sinus bradycardia. Initial troponin and BNP are not elevated. Has had extensive ACS workup and catheterization, fitting room checker feels this is unlikely ACS. She is hypertensive. Marketing Lead is recommending chlorthalidone, SHILA or ARB. Marketing Lead is recommending hospitalization for telemetry monitoring, heart rate improvement, echo.. Discussed with Dr. Vann who does not accept the patient for admission at this time. Last updated by Lloyd Monaco MD at 02/21/24 16:54 Discharge Plan Disposition Patient Disposition: Admit to [facility] Condition: Serious Discharge Details Chief Complaint: Chest Pain Clinical Impression: Bradycardia, Takotsubo cardiomyopathy, Elevated troponin Admit Date/Time: 02/21/24 20:34 Admit Provider: Clark Vann Attending Provider: Clark Vann Primary Care Provider: Nicol Funes ED Provider: Wallace Rae
[2024-02-21] MEDS: Omnipaque 350 MG/ML 100 ML BTL IJ (19:12)
[2024-02-21] MEDS: Normal Saline Flush 10 ML SYR IVP ×3 (19:13→23:28)
[2024-02-21] MEDS: Normal Saline - Diluent 50 ML VIAL IJ (19:13)
--- NOTE | 2024-02-21 20:54 | W.PM.HP.N ---
Date of service: 02/21/24 Time of Service: 20:54 Assessment and Plan Assessment and plan (1) Takotsubo syndrome: Status: Acute Assessment and plan: Presentation and findings on POCUS are highly consistent with Takotsubo/stress induced cardiomyopathy. Pattern off non-focal hypokenesis sparing the base of the heart seen on POCUS is consistent. EKG does not suggest focal ischemia either. This case was reviewed by ED physicians with her primary finishing and shipping supervisor Dr. Gomez as well as Dr. Zelaya, both from [facility] cardiology. Due to lack of capacity, case was reviewed and accepted by Dr. David Barrios at [facility] pending bed. Anticoagulation not recommended. Avoid NTG to maintain preload. She still has some pain but is declining fentanyl (has morphine rash allergy). Continue prn acetaminophen History of anxiety but she denies increase anxiety associated with this event. (2) CAD (coronary artery disease): Status: Chronic Assessment and plan: Per cardiology notes she had cardiac cathertizations in 2014 and 2020 with non-obstructive CAD with maximum stenosis 30%. Continue her outpatient statin. She was loaded with aspirin and I will continue this. (3) Uveitic glaucoma of both eyes, mild stage: Status: Acute Assessment and plan: continue home timolol drops. She was initially bradycardic but has not been for the past several hours. (4) DVT prophylaxis: Status: Acute Assessment and plan: She is declining LMWH initially ordered. She was active until today, so she doesn't technically meet criteria for immobility so Inocente score 2, reasonable to withhold. (5) Discharge planning issues: Status: Acute Assessment and plan: She is accepted at [facility] cardiology as above. She prefers her finishing and shipping supervisor at [facility] but understands this may not be an option. History of Present Illness History of Present Illness Chief Complaint: chest pain Narrative: 79 yo F with history of multiple episodes of Takosubo cardiomyopathy from 2001 to 2020 as well as non-obstructive coronary artery disease who is presenting with chest pain. Episode started at 1:15pm on the afternoon of admission. She was meeting with her and their technical agronomist about her will, but she denies feeling upset, anxious, angry, or other stressful emotion. She first felt flush, then like she needed to move her bowels, pulse felt low. Substernal chest pain developed that starting radiating to both sides as well as nausea. She did not feel palpitations, dizziness, or shortness of breath. The pain is the same as she has had with previous episodes of Takosubo, but stronger, up to 8/10 and is has lasted longer.. If feels worse with moving around. Acetaminophen helped a little. She has been taking her regular medication including atorvastatin. She states a week or more ago she had an episode of irregular heart beats. Event monitor was planned but hasn't been done yet. Of note, she was seen 02/10 at primary care and 02/11 at dermatology for aytipical appearing shingles. She was treed with 7 days of valacyclovir and finished this 2 days ago. The rash has resolved. Review of Systems Constitutional Constitutional: Denies anorexia, Denies body ache(s), Denies fever(s), Reports headache(s) (just starting a mild headache, apical. common for her), Denies weakness, Denies weight gain and Denies weight loss Eyes Eyes: Denies change in vision, Denies diplopia and Reports dry eyes ENT Ears, Nose, Mouth, and Throat: Denies dizziness, Denies otalgia, Reports headache(s) (just starting a mild headache, apical. common for her), Denies nasal congestion, Denies nasal discharge, Denies disequilibrium and Denies sore throat Cardiovascular Cardiovascular: Denies palpitations, Denies dyspnea and Denies orthopnea Respiratory Respiratory: Denies cough, Denies excessive phlegm production, Denies dyspnea and Denies wheezing Gastrointestinal Gastrointestinal: Denies abdominal pain, Denies melena, Denies hematochezia, Denies change in stool character, Denies heartburn, Denies diarrhea, Denies loose stools, Reports nausea and Reports vomiting (2-3 times small amount of water) Genitourinary Genitourinary: Denies hematuria, Denies dysuria and Denies urinary incontinence Musculoskeletal Comments: no new joint pain Integumentary/Breasts Skin/Breast: Denies rash (shingles right buttocks resolved), Denies skin ulcer and Denies wounds Neurologic Neurologic: Denies dizziness, Reports headache(s) (just starting a mild headache, apical. 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 (Acute) Lumbar back pain with radiculopathy affecting lower extremity (Acute) HLA B27 (HLA B27 positive) (Acute) Thoracic back pain (Acute) Lumbar back pain (Acute) Elevated bilirubin (Acute) Foot pain, bilateral (Acute) Pelvic congestion (Acute) Bladder spasms (Acute) Thumb paresthesia, left (Acute) Hyperkalemia (Acute) Takotsubo syndrome (Acute 01/07/15) recurrent episodes, cath [facility] normal coronaries 12/30/1407/05 [facility] normal stress echo Chest pain (Acute) Uveitic glaucoma of both eyes, mild stage (Acute ~03/03/21) [facility] -03/03/21 Medial ankle sprain (Acute) Other sprain of right foot, initial encounter (Acute) Hematuria (Acute) Abdominal pain (Acute) Weight loss (Acute) CAD (coronary artery disease) (Chronic) Weakness of left hip (Acute) Vitamin B 12 deficiency (Chronic 11/05/14) Uveitis (Chronic 05/14/13) pos HLA B-27 Osteopenia (Chronic) DVT (deep venous thrombosis) (Chronic 10/19/17) Closed fracture of neck of right femur with delayed healing (Chronic 06/26/17) Cervical pain (neck) (Chronic 02/18/17) Avascular necrosis of bone of right hip (Chronic 07/22/17) Anxiety (Chronic 05/14/13) Hyperlipidemia (Chronic) Hypertension (Chronic) a. 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 son from TBI, falling coming out of the hospital where he had been hospitalized for end-stage alcoholism (chronic ataxia) b. his birthday is this coming weekend (would have been 43) c. recent attendance at a also triggered grief Troponin level elevated (12/28/14) Chest pain (12/28/14) a. recurrent b. elevations in the past to a max troponin of 0.77 in our system, though Malina reports she has been >1 at [facility] Surgical History S/P abdominal hysterectomy Total replacement of hip [facility] 10/11 [facility] 03/11; SCREWS FOR FEMORAL NECK FX Abdominal hysterectomy H/O surgical procedure a. coronary cath 2001 and 2004 b. hysterectomy for precancerous lesions Family History Mother , 87 Essential hypertension Dementia Heart disease Hyperlipidemia Father , 69 Heart disease CHF (congestive heart failure) Hyperlipidemia Parkinson disease Sister Essential hypertension Bipolar disorder Depression Heart disease Hyperlipidemia Maternal Grandmother , 57 Stroke Grandfather No problems noted. Paternal Grandfather , 80 No problems noted. Paternal Grandmother , 80 Heart disease Son No problems noted. Son Depression Maternal Cousin Parkinson disease Social History (Updated 02/21/24 @ 22:36 by Sin Guerrero) Smoking/Tobacco Use Status: Never Second Hand Exposure: Yes Smoking risk assessment performed?: Yes Alcohol Intake: current Alcohol Intake frequency: a few times a week Alcohol type: wine Drug use: Never Substance use type: does not use Caregiver/Support person: No Household members: spouse Housing: house Communication Needs: None Do you need help understanding health information?: Never Pets and animals: Yes Pets and animals: cat(s) Sexually active: No Do you think of yourself as: straight/heterosexual Current gender identity: female What is your relationship status?: How often do you talk on the phone with friends or family?: three or more times per week How often do you get together with friends or relatives?: once per week Do you belong to any clubs or organized social groups?: yes Panel score (0-1 are the most socially isolated patients): 3 What type of physical activity do you participate in: walking Duration: 15-30 minutes/day Frequency: 3-4 times per week Caryn/Hoahaoism: None Special caryn needs: No Seatbelt use: always Drive intox or ride w/intox skip load driver: No Do you feel safe at home: Yes Do you feel safe in your relationship?: Yes Additional Social history: Lives with in [facility] Allergies and Home Medications Allergies Allergy/AdvReac Type Severity Reaction Status Date / Time venom-wasp Allergy Severe ANAPHYLAXIS Verified 02/21/24 18:49 oxytetracycline Allergy Unknown Diarrhea Verified 02/21/24 18:49 morphine AdvReac Unknown INTOLERANT Verified 02/21/24 18:49 Home Medications Medication Instructions Recorded Confirmed Type acetaminophen 500 mg tablet 2 tab PO BID PRN 04/30/13 02/21/24 History (Tylenol Extra Strength) timolol 0.5 % eye drops (Betimol) 1 drp OU QAM 04/30/13 02/21/24 History nitroglycerin 0.4 mg sublingual 0.4 mg sublingual PRN #25 tabs 11/06/21 02/21/24 Rx tablet (Nitrostat) varicella-zoster glycoE [id number] 0.5 ml IM ONCE #1 ea 08/28/22 02/21/24 Rx adj(PF) 50 mcg/0.5 mL IM susp, kit (Shingrix (PF)) amoxicillin 500 mg tablet 2,000 mg (4 x 500 mg) PO ONCE #16 05/08/23 02/21/24 Rx tabs epinephrine 0.3 mg/0.3 mL 0.3 mg (0.3 mL) IM ONCE #2 SYRGS 05/15/23 02/21/24 Rx injection, auto-injector (EpiPen 2-Jerry) atorvastatin 10 mg tablet 10 mg PO DAILY #90 tabs 10/04/23 02/21/[address] scan - chest: report reviewed (Mild atherosclerotic changes and chronic osseous changes noted. No evidence of aortic dissection or aneurysm. No significant large vessel arterial stenosis or occlusion.) EKG: report reviewed and image reviewed (2:03pm sinus jose alfredo at 43, no ST-T abnormalities. 6:10pm NSR 67, nl axis, intervals. No ischemic ST-T changes) Labs 02/21/24 14:20 02/21/24 14:20 Labs: Laboratory Results - last 24 hr 02/21/24 02/21/24 02/21/24 14:20 14:20 14:20 WBC 11.73 H RBC 4.14 Hgb 12.8 Hct 39.7 MCV 96 H MCH 30.9 MCHC 32.2 RDW 13.8 Plt Count 326 MPV 11.6 H Immature Gran % 0.3 Neutrophils % 66.4 Lymphocytes % 23.6 Monocytes % 7.6 Eosinophils % 1.4 Basophils % 0.7 Nucleated RBC % 0.0 Absolute Neutrophils 7.79 H Absolute Lymphocytes 2.77 Absolute Monocytes 0.89 H Absolute Eosinophils 0.16 Absolute Basophils 0.08 PT 10.5 INR 1.0 APTT 23.0 L Sodium 142 Potassium 3.9 Chloride 105 Carbon Dioxide 28.1 Anion Gap 8.9 BUN 19 H Creatinine 0.8 Est GFR (CKD-EPI 2020) 74.90 Glucose 118 H Calcium 9.3 Magnesium 2.2 Total Bilirubin 1.5 H AST 20 ALT 29 Alkaline Phosphatase 71 Troponin I Cancelled < 50 NT-Pro-B Natriuret Pep Cancelled 61 Total Protein 7.0 Albumin 3.7 02/21/24 17:14 WBC RBC Hgb Hct MCV MCH MCHC RDW Plt Count MPV Immature Gran % Neutrophils % Lymphocytes % Monocytes % Eosinophils % Basophils % Nucleated RBC % Absolute Neutrophils Absolute Lymphocytes Absolute Monocytes Absolute Eosinophils Absolute Basophils PT INR APTT Sodium Potassium Chloride Carbon Dioxide Anion Gap BUN Creatinine Est GFR (CKD-EPI 2020) Glucose Calcium Magnesium Total Bilirubin AST ALT Alkaline Phosphatase Troponin I 413 H* NT-Pro-B Natriuret Pep Total Protein Albumin Last Vital Signs Temp 36.5 C 02/21/24 14:00 Pulse 49 L 02/21/24 17:09 Resp 12 02/21/24 20:00 BP 155/77 H 02/21/24 17:09 Pulse Ox 100 02/21/24 16:52 PAWSS Have you Been Recently Intoxicated or Drunk Within the Last 30 days?: No Have you Ever Experienced Previous Episodes of Alcohol Withdrawal?: No Have you ever Experienced Withdrawal Seizures?: No Have you ever Experienced Delirium Tremens(DT)s?: No Have you ever undergone Alcohol Rehabilitation Treatment (i.e, inpt ot outpatient treatment programs)?: No Have you ever Experienced Blackouts?: No Have you ever Combined Alcohol with other Downers within the last 90 days?: No Have you ever Combined Alcohol with any other Substance of Abuse during the last 90 days?: No Result: 0 Time Spent Time spent with Patient: >75 minutes Time was spent: preparing to see the patient(eg.review tests), obtaining and/or reviewing separately otained hiistory, ordering medications,tests, procedures, referring, communicating with other health manager care, indepentently interpreting results, counseling the patient and care coordination
--- NOTE | 2024-02-21 20:58 | W.POCUS ---
Pocus Exam Limited Cardiac Exam DATE OF EXAM: 02/21/24 TIME OF EXAM: 20:48 PROVIDER THAT PERFORMED THE STUDY: Clark Vann REASON FOR EXAM: Chest pain and Other (elevated troponin levels) indication: chest pain VISUALIZED STRUCTURES: four chambers, LVOT, aortic valve, mitral valve, Interventricular septum and IVC VIEW OBTAINED: Apical 4-Chamber, Parasternal long-axis, Parasternal short-axis and Subxiphoid PERTINENT FINDINGS/IMPRESSION: LV dysfunction :mild; No pericardial effusion and No RV dilation INCIDENTAL FINDINGS: Patient has apical, apical lateral, apical septal wall motion hyokinesis w/ sparing of the basal segements of the anterolateral and inferoseptal wall consistent w/ Takostubo cardiomyopathy Exam complete
--- NOTE | 2024-02-21 21:01 | DI.CT_ITS ---
Exam(s) CT THORAX ABDOMEN CTA EXAM: CT THORAX ABDOMEN CTA CLINICAL HISTORY: chest pain. TECHNIQUE: Imaging Protocol: Axial CT angiography was performed with multi-slice acquisition and m ulti-planar and/or 3D reconstructions. CONTRAST MATERIAL: Intravenous: Omnipaque 350 contrast volume:100 mL Oral: No COMPARISON: CT CT ABDOMEN PELVIS W from 08/05/2020 FINDINGS: CHEST: Tracheobronchial tree: Patent where visualized. Pulmonary parenchyma: No consolidation or dominant measurable mass. No architectural distortion. Calc ified granuloma are present. There is a 3 mm noncalcified pulmonary nodule in the right middle lobe laterally (series 6, image 358). There is dependent atelectasis in the lung bases. Pulmonary Arteries: No evidence of filling defect to suggest pulmonary emboli. Mediastinum and Zenia: No dominant adenopathy or fluid collection. Visualized thyroid: Small hypodense nodules are seen in the thyroid gland. There are less than 1 cm. No follow-up is recommended. Pleura: No effusion or pneumothorax. Heart: The heart is not dilated. Mild coronary artery calcification is present. No pericardial effus ion. Aorta: Thoracic aorta non-dilated. No evidence of dissection. Atherosclerotic calcification is prese nt. Soft Tissues: Unremarkable. Bones: Within normal limits for the patient's age. ABDOMEN AND PELVIS: Abdomen: Celiac axis/mesenteric arteries: No evidence of occlusion or significant stenosis. Renal Arteries: No evidence of occlusion or significant stenosis. Aorta: No evidence of occlusion or significant stenosis. No aneurysm or dissection. Atheroscleroti c calcification is present. Pelvis: Iliac Arteries: Atherosclerotic calcification is present. ABDOMEN: Liver: Normal density. No measurable mass. Gallbladder and Biliary Tract: No radiodense calculus or dilation. Pancreas: Normal density, no abnormal calcifications or inflammatory process. Spleen: Normal. Adrenals: No masses seen. Kidneys: Normal size, contour and axis. There are nonobstructing stones seen in the left kidney. Hyp odensities are seen in the kidneys bilaterally. They are too small for further characterization but statistically likely reflect cysts. No follow-up is recommended. Bowel: No obstruction or bowel wall thickening. Peritoneal Cavity: No ascites, collection or mesenteric inflammatory response. No free air. Lymph Nodes: Within normal limits. Bones: Within normal limits for the patient's age. Soft Tissues: There is a small fat containing umbilical hernia. IMPRESSION: 1. No evidence of aneurysm, occlusion, significant arterial stenosis or dissection in the chest or ab domen. 2. No acute pulmonary or abdominal abnormality. RADIATION DOSE DELIVERED: Total DLP DATA REPOSITORY: All CT scans at this facility are submitted to the National Radiology Data Registry (NRDR) Dose Index Registry (DIR) with the [employer] (ACR). RADIATION OPTIMIZATION: All CT scans at this facility use at least one of these dose optimization te chniques: automated exposure control; mA and/or kV adjustment per patient size (includes targeted exa ms where dose is matched to clinical indication); or iterative reconstruction.
--- NOTE | 2024-02-21 21:08 | W.PC.ACHO ---
Registration Status: REG ER Primary Language: Preferred Language: Romanian ED Information & Data Chief Complaint Chest Pain 02/21/24 14:04 Triage Note CP, nausea, cold sweats that 02/21/24 14:00 started 45 mins ago, Medical / Surgical History (Last Reviewed 02/21/24 @ 16:05 by Lloyd Monaco MD) Strep pharyngitis Sore throat Headache Diverticulitis of colon Iritis Carpal tunnel syndrome Malignant neoplasm of skin Garden stage I closed subcapital fracture of right femur Glaucoma Vasospastic angina Grief (12/28/14) Troponin level elevated (12/28/14) Chest pain (12/28/14) (Last Reviewed 02/21/24 @ 16:05 by Lloyd Monaco MD) S/P abdominal hysterectomy Total replacement of hip Abdominal hysterectomy H/O surgical procedure Most Recent Vital Signs Temperature 36.5 C 02/21/24 14:00 Temperature Source Temporal Artery Scan 02/21/24 14:00 Pulse 49 L 02/21/24 17:09 Pulse 64 02/21/24 20:00 Respiratory Rate 12 02/21/24 20:00 Respiratory Effort Normal 02/21/24 14:27 Respiratory Depth Normal 02/21/24 14:27 Respiratory Pattern Normal 02/21/24 14:27 Blood Pressure 155/77 H 02/21/24 17:09 Blood Pressure Mean 104 02/21/24 17:01 Blood Pressure Position Sitting 02/21/24 14:00 Pulse Oximetry 100 02/21/24 16:52 Oxygen Delivery Method Nasal Cannula 02/21/24 16:52 Oxygen Flow Rate 3 02/21/24 16:52 Pain Level 4 02/21/24 16:52 Comment supplemental o2 per patient request - does not require o2 at baseline 02/21/24 14:32 Allergies venom-wasp Allergy (Severe, Verified 02/21/24 18:49) ANAPHYLAXIS oxytetracycline Allergy (Unknown, Verified 02/21/24 18:49) Diarrhea morphine Adverse Reaction (Unknown, Verified 02/21/24 18:49) INTOLERANT Precautions Isolation Standard precaution 02/21/24 14:02 Active Medications Generic Name Dose Route Start Last Admin Trade Name Freq PRN Reason Stop Dose Admin Acetaminophen 1,000 mg in 100 mls @ 400 mls/hr 02/21/24 16:03 02/21/24 18:27 Ofirmev IVPB Infused Q8H PRN PRN Infusion Iohexol 100 ml 02/21/24 19:15 02/21/24 19:12 Omnipaque 350 Mg/Ml 100 Ml Btl IJ 03/22/24 23:59 100 ml DIRECTED OZZIE Administration Sodium Chloride 0 ml 02/21/24 14:02 02/21/24 19:13 Normal Saline Flush 10 Ml Syr IVP 10 ml PRN PRN Administration Sodium Chloride 50 ml 02/21/24 19:15 02/21/24 19:13 Normal Saline - Diluent 50 Ml Vial IJ 50 ml .FOR DI USE ZOZIE Administration IV IV Catheter Type [Left Forearm Saline Lock ] IV Catheter Type [Right Saline Lock Antecubital] IV Catheter Gauge [Left 18 Forearm] IV Catheter Gauge [Right 18 Antecubital] Diagnostics 02/21/24 02/21/24 02/21/24 Range/Units 20:54 17:14 14:20 WBC (4.4-10.8) 10^3/uL RBC (3.93-5.22) 10^6/uL Hgb (11.2-15.7) g/dL Hct (36.0-46.0) % MCV (80-95) fL MCH (27.0-33.0) pg MCHC (32.0-36.0) % RDW (11.7-14.6) % Plt Count (130-400) 10^3/uL MPV (8.0-11.0) fL Immature Gran % Neutrophils % Lymphocytes % Monocytes % Eosinophils % Basophils % Nucleated RBC % (0.0-0.3) % Absolute Neutrophils (1.2-6.7) 10^3/uL Absolute Lymphocytes (1.2-3.4) 10^3/uL Absolute Monocytes (0.1-0.8) 10^3/uL Absolute Eosinophils (0.0-0.7) 10^3/uL Absolute Basophils (0.0-0.2) 10^3/uL PT (9.1-11.1) sec INR (0.9-1.1) APTT (23.6-32.8) sec Sodium (136-145) mmol/L Potassium (3.5-5.1) mmol/L Chloride (98-107) mmol/L Carbon Dioxide (21.0-32.0) mmol/L Anion Gap (3-11) mmol/L BUN (7-18) mg/dL Creatinine (0.55-1.02) mg/dL Est GFR (CKD-EPI 2020) (mL/min/1.73m2) Glucose (74-106) mg/dL Calcium (8.5-10.1) mg/dL Magnesium (1.8-2.4) mg/dL Total Bilirubin (0.2-1.0) mg/dL AST (15-37) U/L ALT (14-59) U/L Alkaline Phosphatase (46-116) U/L Troponin I Pending 413 H* NT-Pro-B Natriuret Pep 61 Total Protein 7.0 (6.4-8.2) g/dL Albumin 3.7 (3.4-5.0) g/dL 02/21/24 02/21/24 Range/Units 14:20 14:20 WBC 11.73 H (4.4-10.8) 10^3/uL RBC 4.14 (3.93-5.22) 10^6/uL Hgb 12.8 (11.2-15.7) g/dL Hct 39.7 (36.0-46.0) % MCV 96 H (80-95) fL MCH 30.9 (27.0-33.0) pg MCHC 32.2 (32.0-36.0) % RDW 13.8 (11.7-14.6) % Plt Count 326 (130-400) 10^3/uL MPV 11.6 H (8.0-11.0) fL Immature Gran % 0.3 Neutrophils % 66.4 Lymphocytes % 23.6 Monocytes % 7.6 Eosinophils % 1.4 Basophils % 0.7 Nucleated RBC % 0.0 (0.0-0.3) % Absolute Neutrophils 7.79 H (1.2-6.7) 10^3/uL Absolute Lymphocytes 2.77 (1.2-3.4) 10^3/uL Absolute Monocytes 0.89 H (0.1-0.8) 10^3/uL Absolute Eosinophils 0.16 (0.0-0.7) 10^3/uL Absolute Basophils 0.08 (0.0-0.2) 10^3/uL PT 10.5 (9.1-11.1) sec INR 1.0 (0.9-1.1) APTT 23.0 L (23.6-32.8) sec Sodium 142 (136-145) mmol/L Potassium 3.9 (3.5-5.1) mmol/L Chloride 105 (98-107) mmol/L Carbon Dioxide 28.1 (21.0-32.0) mmol/L Anion Gap 8.9 (3-11) mmol/L BUN 19 H (7-18) mg/dL Creatinine 0.8 (0.55-1.02) mg/dL Est GFR (CKD-EPI 2020) 74.90 (mL/min/1.73m2) Glucose 118 H (74-106) mg/dL Calcium 9.3 (8.5-10.1) mg/dL Magnesium 2.2 (1.8-2.4) mg/dL Total Bilirubin 1.5 H (0.2-1.0) mg/dL AST 20 (15-37) U/L ALT 29 (14-59) U/L Alkaline Phosphatase 71 (46-116) U/L Troponin I < 50 Cancelled NT-Pro-B Natriuret Pep Cancelled Total Protein (6.4-8.2) g/dL Albumin (3.4-5.0) g/dL Intake and Output - 24 Hour Total 02/21/24 13:56 thru 02/21/24 18:27 Intake Total 100 Balance 100 Weight 58.967 kg Intake: IV 100 Falls Risk Assessment History of Falls No History 02/21/24 14:27 Contributing Factors No Factors 02/21/24 14:27 Ambulatory Aids Independent 02/21/24 14:27 Tubes/Lines None 02/21/24 14:27 Gait Evaluation No gait disturbance 02/21/24 14:27 Cognition No cognitive impairment 02/21/24 14:27 Fall Total Score 0 02/21/24 14:27 Level of Risk Standard/Low Risk 02/21/24 14:27 Notes 02/21/24 15:39 Nursing Notes by Carolin Mederos Nursing Note: pt rang call ortega to report chest pressure is now radiating outward from just sternal area. No other symptoms at this time. Provider made aware; no new orders at this time. Initialized on 02/21/24 15:39 - END OF NOTE v v v v v v v v v Sending and/or Receiving Nurses: Please use comment section below to note any information pertinent to the patient hand-off not included above. Information / Comments: Report received from: Ana Hastings RN
--- NOTE | 2024-02-21 21:19 | DI.VRAD_ITS ---
PROCEDURE INFORMATION: Exam: CTA Chest With Contrast CTA Abdomen With Contrast Exam date and time: 02/21/2024 8:33 PM Age: 79 years old Clinical indication: Chest pressure; Patient HX: Chest pain, heart problems TECHNIQUE: Imaging protocol: Computed tomographic angiography of the chest with contrast. Exam focused on the arteries. Computed tomographic angiography of the abdomen with contrast. Exam focused on the arteries. 3D rendering (Not supervised by radiologist): MIP and/or 3D reconstructed images were created by the technologist. Radiation optimization: All CT scans at this facility use at least one of these dose optimization techniques: automated exposure control; mA and/or kV adjustment per patient size (includes targeted exams where dose is matched to clinical indication); or iterative reconstruction. Contrast material: [id number]; Contrast volume: 100 ml; Contrast route: INTRAVENOUS (IV); COMPARISON: CR XR CHEST 2V PA LATERAL 06/14/2021 12:26 PM FINDINGS: VASCULATURE: Pulmonary arteries: Normal. No pulmonary emboli. Aorta: Mild scattered atherosclerotic calcification. No aortic aneurysm. No aortic dissection. Celiac trunk and mesenteric arteries: No occlusion or significant stenosis. Renal arteries: No occlusion or significant stenosis. CHEST: Lungs: Unremarkable. No consolidation. No masses. Pleural spaces: Unremarkable. No pneumothorax. No pleural effusion. Heart: Unremarkable. No cardiomegaly. No pericardial effusion. ABDOMEN AND PELVIS: Liver: No mass. Gallbladder and bile ducts: Unremarkable. No calcified stones. No ductal dilation. Pancreas: Unremarkable. No mass. No ductal dilation. Spleen: Unremarkable. No splenomegaly. Adrenal glands: Unremarkable. No mass. Kidneys and ureters: Scattered subcentimeter simple appearing bilateral renal cortical cysts. No solid renal mass or hydronephrosis. Stomach and bowel: Unremarkable. No obstruction. No mucosal thickening. Intraperitoneal space: Unremarkable. No free air. No significant fluid collection. Lymph nodes: Unremarkable. No enlarged lymph nodes. Bones/joints: Moderate degenerative disc changes throughout the spine. No vertebral body compression or acute fracture. Soft tissues: Unremarkable. IMPRESSION: Mild atherosclerotic changes and chronic osseous changes noted. No evidence of aortic dissection or aneurysm. No significant large vessel arterial stenosis or occlusion. Dictated and Authenticated by: Francisco J Cehng MD. Ordering:AMADO Gonsalez MD
[2024-02-21] MEDS: Prochlorperazine 10 MG/2 ML VIAL 5 MG IVP (22:01)
[2024-02-21 23:50] LABS: Troponin I 1941 ng/L (< or =60)
[2024-02-22] VITALS (95 sets, daily range): BP systolic 118–135; BP diastolic 71–79; PULSE 64–91; RESP 12–43; TEMP 36–36.2; O2SAT 95–99
[2024-02-22 06:43] LABS: Abs Immature Grans 0.02 10^3/uL (0.0-0.06); Absolute Basophil Count 0.05 10^3/uL (0.0-0.2); Absolute Lymphocyte Count 1.76 10^3/uL (1.2-3.4); Absolute Monocyte Count 0.99 10^3/uL (0.1-0.8); Absolute Neutrophil Count 7.73 10^3/uL (1.2-6.7); Basophils % 0.5; HCT 37.4 % (36.0-46.0); HGB 12.6 g/dL (11.2-15.7); Immature Grans % 0.2; Lymphocytes % 16.7; MCH 31.2 pg (27.0-33.0); MCHC 33.7 % (32.0-36.0); MCV 93 fL (80-95); Monocytes % 9.4; Neutrophils % 73.2; Platelet Count 262 10^3/uL (130-400); RBC 4.04 10^6/uL (3.93-5.22); RDW 13.8 % (11.7-14.6); RDW-SD 46.5 fL; WBC 10.55 10^3/uL (4.4-10.8)
[2024-02-22 07:04] LABS: ALT 25 U/L (14-59); AST 30 U/L (15-37); Albumin 3.4 g/dL (3.4-5.0); Alkaline Phosphatase 65 U/L (46-116); Anion Gap 9.6 mmol/L (3-11); BUN 18 mg/dL (7-18); Bilirubin, Total 1.6 mg/dL (0.2-1.0); CO2 24.4 mmol/L (21.0-32.0); CREATININE 0.7 mg/dL (0.55-1.02); Calculated LDL 93 mg/dL (<100); Chloride 107 mmol/L (98-107); Cholesterol 175 mg/dL (<200); Estimated GFR 87.92 (mL/min/1.73m2); Glucose 112 mg/dL (74-106); HDL Cholesterol 75 mg/dL (40-60); Potassium 3.7 mmol/L (3.5-5.1); Sodium 141 mmol/L (136-145); Total Protein 6.3 g/dL (6.4-8.2); Triglyceride 38 mg/dL (<150)
[2024-02-22 07:18] LABS: Troponin I 4774 ng/L (< or =60)
[2024-02-22] MEDS: ACETAMINOPHEN 1,000 MG/100 ML BTL 400 MG IVPB (08:29)
[2024-02-22] MEDS: Aspirin E.C. 81 MG TABEC PO (08:30)
[2024-02-22] MEDS: Timolol 0.5% 5 ML BTL OU (08:30)
[2024-02-22] MEDS: Normal Saline Flush 10 ML SYR IVP ×2 (08:30)
--- NOTE | 2024-02-22 08:34 | PDOC.CMIN ---
Date of service: 02/22/24 Time of Service: 08:34 Care Management Initial Assmt Initial Assessment REASON FOR HOSPITALIZATION:: cardiomyopathy PREVIOUS FUNCTIONAL STATUS/SOCIAL/FAMILY SUPPORTS:: Malina lives in [place] with her Swapnil. She is independent at baseline and does not receive any community services. CURRENT FUNCTIONAL STATUS:: Malina was dressed and ready for discharge when CM met with her. She was admitted with Takatsubo cardiomyopathy, a condition she has had before. She was going to be transferred to [facility] as there are no beds at [facility] where her See Wheeler, Dr. Rosa, is. After consultation with her bistro server, the decision was made for Malina to discharge home today and see her bistro server on Saturday. ADVANCE DIRECTIVES:: On file. Swapnil [facility] Has patient been provided with info about the portal/API?: Yes Did the patient sign up for the portal?: Yes CODE STATUS:: Full Code INSURANCE COVERAGE / FINANCIAL ISSUES:: Medicare [employer] supplement CURRENT HOME/COMMUNITY SERVICES/EQUIPMENT:: none PRIMARY CARE PHYSICIAN:: Nicol Funes POTENTIAL DISCHARGE NEEDS:: follow up with her [facility] See Wheeler on Saturday PATIENT/FAMILY EDUCATION NEEDS:: Review discharge instructions, activity, limitations, follow up plan, discuss Ask Me Three ANTICIPATED BARRIERS TO DISCHARGE:: bed availability TRANSPORTATION:: EMS coordinated by nursing sound technician supervisor PLAN:: Malina will be discharged home today with no new services. She will follow up with her See Wheeler Dr. Gomez at [facility] on Saturday. Malina will be driven home by her Swapnil. 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 (Acute) Lumbar back pain with radiculopathy affecting lower extremity (Acute) HLA B27 (HLA B27 positive) (Acute) Thoracic back pain (Acute) Lumbar back pain (Acute) Elevated bilirubin (Acute) Foot pain, bilateral (Acute) Pelvic congestion (Acute) Bladder spasms (Acute) Thumb paresthesia, left (Acute) Hyperkalemia (Acute) Takotsubo syndrome (Acute 01/07/15) recurrent episodes, cath [facility] normal coronaries 12/30/1407/05 [facility] normal stress echo Chest pain (Acute) Uveitic glaucoma of both eyes, mild stage (Chronic ~03/03/21) [facility] -03/03/21 Medial ankle sprain (Acute) Other sprain of right foot, initial encounter (Acute) Hematuria (Acute) Abdominal pain (Acute) Weight loss (Acute) CAD (coronary artery disease) (Chronic) Weakness of left hip (Acute) Vitamin B 12 deficiency (Chronic 11/05/14) Uveitis (Chronic 05/14/13) pos HLA B-27 Osteopenia (Chronic) DVT (deep venous thrombosis) (Chronic 10/19/17) Closed fracture of neck of right femur with delayed healing (Chronic 06/26/17) Cervical pain (neck) (Chronic 02/18/17) Avascular necrosis of bone of right hip (Chronic 07/22/17) Anxiety (Chronic 05/14/13) Hyperlipidemia (Chronic) Hypertension (Chronic) a. 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 son from TBI, falling coming out of the hospital where he had been hospitalized for end-stage alcoholism (chronic ataxia) b. his birthday is this coming weekend (would have been 43) c. recent attendance at a also triggered grief Troponin level elevated (12/28/14) Chest pain (12/28/14) a. recurrent b. elevations in the past to a max troponin of 0.77 in our system, though Malina reports she has been >1 at [facility] Surgical History S/P abdominal hysterectomy Total replacement of hip [facility] 10/11 [facility] 03/11; SCREWS FOR FEMORAL NECK FX Abdominal hysterectomy H/O surgical procedure a. coronary cath 2001 and 2004 b. hysterectomy for precancerous lesions Family History Mother , 87 Essential hypertension Dementia Heart disease Hyperlipidemia Father , 69 Heart disease CHF (congestive heart failure) Hyperlipidemia Parkinson disease Sister Essential hypertension Bipolar disorder Depression Heart disease Hyperlipidemia Maternal Grandmother , 57 Stroke Grandfather No problems noted. Paternal Grandfather , 80 No problems noted. Paternal Grandmother , 80 Heart disease Son No problems noted. Son Depression Maternal Cousin Parkinson disease Social History Smoking/Tobacco Use Status: Never Second Hand Exposure: Yes Smoking risk assessment performed?: Yes Alcohol Intake: current Alcohol Intake frequency: a few times a week Alcohol type: wine Drug use: Never Substance use type: does not use Caregiver/Support person: No Household members: spouse Housing: house Communication Needs: None Do you need help understanding health information?: Never Pets and animals: Yes Pets and animals: cat(s) Sexually active: No Do you think of yourself as: straight/heterosexual Current gender identity: female What is your relationship status?: How often do you talk on the phone with friends or family?: three or more times per week How often do you get together with friends or relatives?: once per week Do you belong to any clubs or organized social groups?: yes Panel score (0-1 are the most socially isolated patients): 3 What type of physical activity do you participate in: walking Duration: 15-30 minutes/day Frequency: 3-4 times per week Caryn/Quaker: None Special caryn needs: No Seatbelt use: always Drive intox or ride w/intox driver's license reviewing officer: No Do you feel safe at home: Yes Do you feel safe in your relationship?: Yes Additional Social history: Lives with in [facility](Care Management) Screening Will the Patient Participate in the Screening?: Yes Do you worry about having a steady place to live?: no Problems where you live: no known problems In the past 12 months, have you had to go without electric, gas, oil or water in your home?: no Have you or anyone in your house had to go without enough food to eat?: no Has lack of transportation kept you from medical appointments or from doing things needed for daily living?: no Has anyone in your support network made you feel unsafe for any reason?: no
[2024-02-22 10:47] LABS: Troponin I 4741 ng/L (< or =60)
--- NOTE | 2024-02-22 11:43 | W.PM.DS.N ---
Date of service: 02/22/24 Time of Service: 11:43 DS: Diagnosis Discharge Diagnosis (1) Takotsubo syndrome: Status: Acute Asessment and Plan: Patient presented with intense anterior CP similar to prior episodes of Takotsubo but this episode was more prlonged lasting several hours. See admission H&P for details of her presenting symptoms. Patient says she and her were meeting w/ their residential insurance inspector about her will but she did feel any particular emotional distress. Her EKG did not show any ischemic changes. Her first troponin was normal at <50 but second troponin panfilo to 413 and finally peaked at 4774 before plateau at 4741. [facility] cardiology was called (both Dr. Gomez and Dr. Zelaya) and gave advice on management but unfortunately they were not taking transfers d/t bed capacity issues. Patient was accepted for transfer to [facility] in [place] to service of Dr. David Barrios. I performed a bedside echo which showed classic LV changes of Takotsubo cardiomyopathy w/ apical ballooning w/ hyokinsis over multiple coronary distributions but w/ basilar sparing of the LV seen on 4 chamber echo. patient was kept on her statin and given aspirin but heparin was advised against. Nitrates were not used per advice from Dr. Barrios. Overnight the patient's chest pain resolved w/ acetaminophen. The next morning the troponin had peaked and when repeated later in the morining it appeared to have plateued. The patient was desiring to return home and had spoken w/ her supervisor final, Dr. Gomez. I also called her and we agreed that it was reasonable for the patient to return home now that her chest pain had resolved and her troponin had plateaued. Patient will follow up w/ Dr. Gomez on Saturday. (2) Bradycardia: Status: Acute Asessment and Plan: patient presented in sinus bradycardia rate in the 40's, no heart block. She was monitored on telemetry overnight and had no significant bradycardic spells. Rhythm has been in the 70's to 80's and sinus. When she was bradycardic, and having intense chest pain, it is notable that she had episode of nausea and vomiting and her HR increased into the normal range. Thus she has intact sympathetic/parasympathetic response of her cardiac conduction. Note the prior week she had been having symptoms of irregular heart beats and bus driver/monitor had been planned but has not been set up yet. (3) CAD (coronary artery disease): Status: Chronic Asessment and Plan: non-obstructive CAD w/ 30 % narrowing on prior cath per Dr. Kirk's cardiology notes. (4) Uveitic glaucoma of both eyes, mild stage: Status: Chronic Discharge Plan Disposition Patient Disposition: Home Condition: Improving Discharge Details Reason For Visit: Takatsubo Cardiomyopathy,elevated troponin,chest p Admit Date/Time: 02/21/24 20:34 Admit Provider: Clark Vann Attending Provider: Clark Vann Primary Care Provider: Nicol Funes Home Meds and New Rx's Prescriptions: New aspirin 81 mg Tablet,Delayed Release (Dr/Ec) 81 mg PO DAILY Qty: 0 0RF Continued Shingrix (PF) 50 mcg/0.5 mL suspension for reconstitution 0.5 ml IM ONCE Qty: 1 1RF Rx Instructions: as a single dose. Repeat in 2 months acetaminophen [Tylenol Extra Strength] 500 MG tablet 2 tab PO BID PRN Rx Instructions: 1000 MG BID PRN Betimol 15 ML drops 1 drp OU QAM Patient Comments: 12/17/17- Taking once daily. aj 8.2.17 pt states this has been increased to BID.HE nitroglycerin [Nitrostat] 0.4 mg tablet, sublingual 0.4 mg Sublingual PRN MDD 3 Qty: 25 0RF Rx Instructions: 1 TAB SL PRN amoxicillin 500 mg tablet 2,000 mg PO ONCE Qty: 16 2RF Patient Comments: for dental procedures Rx Instructions: take 1 hour before procedure epinephrine [EpiPen 2-Jerry] 0.3 mg/0.3 mL auto-injector 0.3 mg IM ONCE Qty: 2 0RF Rx Instructions: Go immediately to the ER after injection atorvastatin 10 mg tablet 10 mg PO DAILY Qty: 90 12RF Discharge Instructions Instructions: Chest Pain (DC) Additional Instructions: You were admitted overnight for evaluation of chest pain and found to have recurrent Takotsubo cardiomyopathy. You had a CT angiogram that rule out any aortic dissection. A bedside echo (point of care ultrasound) was performed and showed typical changes of Takotsubo. You should continue aspirin 81 mg daily and continue your atorvastatin. Dr. Gomez's office will call you on Saturday to set up appointment for early next week. If you have recurrent chest pain/pressure, shortness of breath, palpitations or severe lightheadedness, you should return to the emergency room for re-evaluation. Referrals: Clementine Gomez [ NON-[facility] STAFF PHYSICIAN] - (Dr. Gomez office should call you on Saturday. If you do not hear from them by noon then call her office to schedule appointment for next week) Nicol Funes MD, [place] [Primary Care Provider] - (call the office for follow up) Activity:: Activity as Tolerated Equipment/Supplies:: No Equipment Needed Diet:: Normal Diet Discharge Orders Discharge Orders: Discharge Order (Routine); Ordered 02/22/24 Ordered By: Clark Vann DS: Summary Time Spent with Patient providing and/or coordinating discharge services: Greater than 30 minutes Specific discharge activities: Interview/exam of patient; review of discharge instructions, completion of prescriptions/discharge instructions; discussion w/ nursing and CM; documentation of hospital visit Status at Discharge Functional status at discharge: independent ambulation Overall status at discharge: patient is progressing back to baseline Mental Status: mental status grossly normal Speech and Movement: speech and movement normal Mood: congruent mood Affect: normal affect Quality:SDOH Health Related Social Needs: No Data to Display Exam Narrative Exam Narrative: Malina states she woke up w/ no CP but later after breakfast has slight chest discomfort which was quickly relieved by acetaminophen She denies any dyspnea, she would like to return home and she says that she has spoken w/ her [facility] supervisor final, Dr. Goemz who has indicated willingness to see her on Saturday if she is discharged over the weekend. LUngs: clear Heart: RRR, no murmur or rub Extremities: no edema Psych Mental Status: mental status grossly normal Speech and Movement: speech and movement normal Mood: congruent mood Affect: normal affect DS: Data Vitals/I&O Vitals and I&O: Vital Signs Temperature 36.2 C L 02/22/24 08:49 Temperature Source Tympanic 02/22/24 04:00 Pulse 82 02/22/24 08:49 Pulse 85 02/22/24 08:40 Respiratory Rate 19 02/22/24 08:49 Respiratory Effort Normal, Non-Labored 02/22/24 08:49 Respiratory Depth Normal 02/22/24 08:49 Respiratory Pattern Normal 02/22/24 08:49 Blood Pressure 132/76 02/22/24 06:00 Blood Pressure Mean 93 02/22/24 06:00 Blood Pressure Position Sitting 02/22/24 08:49 Pulse Oximetry 99 02/22/24 08:49 Oxygen Delivery Method Room Air 02/22/24 08:49 Oxygen Flow Rate 0 02/22/24 08:49 Pain Level 2 02/22/24 08:49 Comment supplemental o2 per patient request - does not require o2 at baseline 02/21/24 14:32 Intake & Output 02/21/24 02/21/24 02/22/24 11:59 23:59 11:59 Intake Total 200 / 200 460 / 460 Output Total 1000 / 1000 Balance 200 / 200 -540 / -540 Weight 58.7 kg 58.5 kg Intake: IV 200 / 200 20 / 20 Oral 440 / 440 Output: Urine 1000 / 1000 Other: Urine Color Straw Urine Appearance Clear Urine Odor Normal Voiding Methods Bedside Commode Data Completed and Pending Labs on day of discharge: Labs from last 24 hours 02/22/24 02/22/24 02/21/24 10:10 06:13 23:19 WBC 10.55 RBC 4.04 Hgb 12.6 Hct 37.4 MCV 93 MCH 31.2 MCHC 33.7 RDW 13.8 Plt Count 262 MPV 12.0 H Immature Gran % 0.2 Neutrophils % 73.2 Lymphocytes % 16.7 Monocytes % 9.4 Eosinophils % 0.0 Basophils % 0.5 Nucleated RBC % 0.0 Absolute Neutrophils 7.73 H Absolute Lymphocytes 1.76 Absolute Monocytes 0.99 H Absolute Eosinophils 0.00 Absolute Basophils 0.05 PT INR APTT Sodium 141 Potassium 3.7 Chloride 107 Carbon Dioxide 24.4 Anion Gap 9.6 BUN 18 Creatinine 0.7 Est GFR (CKD-EPI 2020) 87.92 Glucose 112 H Calcium 9.0 Magnesium Total Bilirubin 1.6 H AST 30 ALT 25 Alkaline Phosphatase 65 Troponin I 4741 H* 4774 H* 1941 H* NT-Pro-B Natriuret Pep Total Protein 6.3 L Albumin 3.4 Triglycerides 38 Total Cholesterol 175 LDL Cholesterol, Calc 93 HDL Cholesterol 75 02/21/24 02/21/24 02/21/24 17:14 14:20 14:20 WBC RBC Hgb Hct MCV MCH MCHC RDW Plt Count MPV Immature Gran % Neutrophils % Lymphocytes % Monocytes % Eosinophils % Basophils % Nucleated RBC % Absolute Neutrophils Absolute Lymphocytes Absolute Monocytes Absolute Eosinophils Absolute Basophils PT INR APTT Sodium Potassium Chloride Carbon Dioxide Anion Gap BUN Creatinine Est GFR (CKD-EPI 2020) Glucose Calcium Magnesium Total Bilirubin AST ALT Alkaline Phosphatase Troponin I 413 H* < 50 NT-Pro-B Natriuret Pep 61 Cancelled Total Protein 7.0 Albumin 3.7 Triglycerides Total Cholesterol LDL Cholesterol, Calc HDL Cholesterol 02/21/24 14:20 WBC 11.73 H RBC 4.14 Hgb 12.8 Hct 39.7 MCV 96 H MCH 30.9 MCHC 32.2 RDW 13.8 Plt Count 326 MPV 11.6 H Immature Gran % 0.3 Neutrophils % 66.4 Lymphocytes % 23.6 Monocytes % 7.6 Eosinophils % 1.4 Basophils % 0.7 Nucleated RBC % 0.0 Absolute Neutrophils 7.79 H Absolute Lymphocytes 2.77 Absolute Monocytes 0.89 H Absolute Eosinophils 0.16 Absolute Basophils 0.08 PT 10.5 INR 1.0 APTT 23.0 L Sodium 142 Potassium 3.9 Chloride 105 Carbon Dioxide 28.1 Anion Gap 8.9 BUN 19 H Creatinine 0.8 Est GFR (CKD-EPI 2020) 74.90 Glucose 118 H Calcium 9.3 Magnesium 2.2 Total Bilirubin 1.5 H AST 20 ALT 29 Alkaline Phosphatase 71 Troponin I Cancelled NT-Pro-B Natriuret Pep Total Protein Albumin Triglycerides Total Cholesterol LDL Cholesterol, Calc HDL Cholesterol PFSH All Active Problems (Updated 02/22/24 @ 12:40 by Clark Vann MD) Elevated troponin (Acute) Takotsubo cardiomyopathy (Acute) Bradycardia (Acute) Discharge planning issues (Acute) DVT prophylaxis (Acute) Temporal headache (Acute) Sacro-iliac pain (Acute) Palpitations (Acute) Ankylosing spondylitis (Acute) 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 (Acute) Lumbar back pain with radiculopathy affecting lower extremity (Acute) HLA B27 (HLA B27 positive) (Acute) Thoracic back pain (Acute) Lumbar back pain (Acute) Elevated bilirubin (Acute) Foot pain, bilateral (Acute) Pelvic congestion (Acute) Bladder spasms (Acute) Thumb paresthesia, left (Acute) Hyperkalemia (Acute) Takotsubo syndrome (Acute 01/07/15) recurrent episodes, cath [facility] normal coronaries 12/30/1407/05 [facility] normal stress echo Chest pain (Acute) Uveitic glaucoma of both eyes, mild stage (Chronic ~03/03/21) [facility] -03/03/21 Medial ankle sprain (Acute) Other sprain of right foot, initial encounter (Acute) Hematuria (Acute) Abdominal pain (Acute) Weight loss (Acute) CAD (coronary artery disease) (Chronic) Weakness of left hip (Acute) Vitamin B 12 deficiency (Chronic 11/05/14) Uveitis (Chronic 05/14/13) pos HLA B-27 Osteopenia (Chronic) DVT (deep venous thrombosis) (Chronic 10/19/17) Closed fracture of neck of right femur with delayed healing (Chronic 06/26/17) Cervical pain (neck) (Chronic 02/18/17) Avascular necrosis of bone of right hip (Chronic 07/22/17) Anxiety (Chronic 05/14/13) Hyperlipidemia (Chronic) Hypertension (Chronic) a. no evidence of CAD, but no cath x 10 years Arthralgia (Chronic) Dupuytrens contracture (Chronic) Medical History Strep pharyngitis Sore throat Headache Diverticulitis of colon 10/24/97 Iritis 03/11/09 Carpal tunnel syndrome 05/14/13 [facility] nerve conduction studies 2012, right hand pain ([place], [facility]) Malignant neoplasm of skin squamous cell left cheek Garden stage I closed subcapital fracture of right femur Glaucoma Vasospastic angina Grief (12/28/14) a. son from TBI, falling coming out of the hospital where he had been hospitalized for end-stage alcoholism (chronic ataxia) b. his birthday is this coming weekend (would have been 43) c. recent attendance at a also triggered grief Troponin level elevated (12/28/14) Chest pain (12/28/14) a. recurrent b. elevations in the past to a max troponin of 0.77 in our system, though Malina reports she has been >1 at [facility] Surgical History S/P abdominal hysterectomy Total replacement of hip [facility] 10/11 [facility] 03/11; SCREWS FOR FEMORAL NECK FX Abdominal hysterectomy H/O surgical procedure a. coronary cath 2001 and 2004 b. hysterectomy for precancerous lesions Family History Mother , 87 Essential hypertension Dementia Heart disease Hyperlipidemia Father , 69 Heart disease CHF (congestive heart failure) Hyperlipidemia Parkinson disease Sister Essential hypertension Bipolar disorder Depression Heart disease Hyperlipidemia Maternal Grandmother , 57 Stroke Grandfather No problems noted. Paternal Grandfather , 80 No problems noted. Paternal Grandmother , 80 Heart disease Son No problems noted. Son Depression Maternal Cousin Parkinson disease Social History Smoking/Tobacco Use Status: Never Second Hand Exposure: Yes Smoking risk assessment performed?: Yes Alcohol Intake: current Alcohol Intake frequency: a few times a week Alcohol type: wine Drug use: Never Substance use type: does not use Caregiver/Support person: No Household members: spouse Housing: house Communication Needs: None Do you need help understanding health information?: Never Pets and animals: Yes Pets and animals: cat(s) Sexually active: No Do you think of yourself as: straight/heterosexual Current gender identity: female What is your relationship status?: How often do you talk on the phone with friends or family?: three or more times per week How often do you get together with friends or relatives?: once per week Do you belong to any clubs or organized social groups?: yes Panel score (0-1 are the most socially isolated patients): 3 What type of physical activity do you participate in: walking Duration: 15-30 minutes/day Frequency: 3-4 times per week Caryn/Muslim: None Special caryn needs: No Seatbelt use: always Drive intox or ride w/intox bus driver/monitor: No Do you feel safe at home: Yes Do you feel safe in your relationship?: Yes Additional Social history: Lives with in [facility] Time Spent with Patient Time Spent with Patient: 45-69 minutes Time was spent: preparing to see the patient(eg.review tests), ordering medications,tests, procedures, referring, communicating with other health childcare aide (I personally spoke w/ Dr. Clementine Gomez), indepentently interpreting results, counseling the patient and care coordination
--- NOTE | 2024-02-22 13:37 | PDOC.CMPRO ---
Date of service: 02/22/24 Time of Service: 13:37 SDOH(Care Management) Screening Will the Patient Participate in the Screening?: Yes Do you worry about having a steady place to live?: no Problems where you live: no known problems In the past 12 months, have you had to go without electric, gas, oil or water in your home?: no Have you or anyone in your house had to go without enough food to eat?: no Has lack of transportation kept you from medical appointments or from doing things needed for daily living?: no Has anyone in your support network made you feel unsafe for any reason?: no
== END 2024-02-22 13:19 | disposition home or self-care (01) | DRG 315 ==
LOC: ER 20:51 → ICU 21:27
PROVIDERS: Emergency Medicine; Admitting Provider Internal Medicine; Emergency Provider Student in an Organized Health Care Education/Training Program; PCP Family Medicine; Visit Provider Internal Medicine
DX: I51.81 Takotsubo syndrome (principal); G99.2 Myelopathy in diseases classified elsewhere; I25.10 Atherosclerotic heart disease of native coronary artery without angina pectoris; H40 Glaucoma; R00.1 Bradycardia, unspecified; M45.9 Ankylosing spondylitis of unspecified sites in spine; M48.061 Spinal stenosis, lumbar region without neurogenic claudication; M54.16 Radiculopathy, lumbar region; Z86.718 Personal history of other venous thrombosis and embolism; I10 Essential (primary) hypertension; E78.5 Hyperlipidemia, unspecified; F41.9 Anxiety disorder, unspecified; M85.80 Other specified disorders of bone density and structure, unspecified site; R74.8 Abnormal levels of other serum enzymes
CPT/HCPCS: 00123; 36415; 71275; 74175; 80053; 80061; 93005; 93308; 96375; 99291; 83735; 83880; 84484; 85025; 85610; 85730; 93010; 99239; J0131; J0780; J2405; J3490

== ENCOUNTER 2024-03-12 04:55 | Outpatient (CLI) | payer MEDICARE, SELFPAY ==
[2024-03-12 16:50] LABS: ALT 31 U/L (14-59); AST 17 U/L (15-37); Albumin 3.7 g/dL (3.4-5.0); Alkaline Phosphatase 71 U/L (46-116); Anion Gap 8.2 mmol/L (3-11); BUN 26 mg/dL (7-18); Bilirubin, Direct 0.3 mg/dL (0.0-0.2); Bilirubin, Total 1.9 mg/dL (0.2-1.0); CO2 28.8 mmol/L (21.0-32.0); CREATININE 0.7 mg/dL (0.55-1.02); Calcium 9.9 mg/dL (8.5-10.1); Chloride 107 mmol/L (98-107); Estimated GFR 87.92 (mL/min/1.73m2); Glucose 100 mg/dL (74-106); Magnesium 2.3 mg/dL (1.8-2.4); NT-proBNP 854 pg/mL (<300); Potassium 4.5 mmol/L (3.5-5.1); Sodium 144 mmol/L (136-145); Total Protein 7.1 g/dL (6.4-8.2)
== END 2024-03-12 04:56 | disposition home or self-care (01) ==
LOC: LBO 04:55
PROVIDERS: PCP Family Medicine; Visit Provider Internal Medicine Cardiovascular Disease
DX: I50.9 Heart failure, unspecified (principal)
CPT/HCPCS: 36415; 80048; 80076; 83735; 83880

== ENCOUNTER 2024-09-29 02:28 | Outpatient (CLI) | payer MEDICARE, SELFPAY ==
[2024-09-29 13:17] LABS: Vitamin B12 348 pg/mL (193-986)
== END 2024-09-29 02:29 | disposition home or self-care (01) ==
LOC: LOS 02:29
PROVIDERS: PCP Family Medicine; Visit Provider Family Medicine
DX: E53.8 Deficiency of other specified B group vitamins (principal)
CPT/HCPCS: 36415; 82607

== ENCOUNTER 2024-10-08 20:34 | Outpatient (REF) | payer MEDICARE, SELFPAY ==
[2024-10-08 13:10] LABS: Bilirubin Negative (Negative); Blood Trace-lysed (Negative); Clarity Clear (Clear); Glucose Negative (Negative); Ketones Trace mg/dL (Negative); Leukocyte Esterase Negative (Negative); Nitrite Negative (Negative); Specific Gravity >= 1.030 (1.005-1.025); Urobilinogen 0.2 mg/dL (Up to 0.2); pH 5.5 (5-8)
[2024-10-08 13:17] LABS: Bacteria Negative HPF (Negative); C & S Indicated? No; Casts Negative LPF (Negative); Crystals Negative HPF (Negative); Epithelial Cells Negative HPF (Negative); Mucus Negative (Negative); RBC 0-2 HPF (0-2); WBC Negative HPF (0-5)
== END 2024-10-08 20:35 | disposition home or self-care (01) ==
LOC: LBN 20:34
PROVIDERS: PCP Family Medicine; Visit Provider Family Medicine
DX: R35.0 Frequency of micturition (principal)
CPT/HCPCS: 81003; 81015

== ENCOUNTER 2024-10-29 10:44 | Outpatient (CLI) | payer MEDICARE, SELFPAY ==
[2024-10-29 12:24] LABS: HCT 40.6 % (36.0-46.0); HGB 12.9 g/dL (11.2-15.7); MCH 30.9 pg (27.0-33.0); MCHC 31.8 % (32.0-36.0); MCV 97 fL (80-95); MPV 12.1 fL (8.0-11.0); Platelet Count 252 10^3/uL (130-400); RBC 4.17 10^6/uL (3.93-5.22); RDW 13.7 % (11.7-14.6); WBC 7.22 10^3/uL (4.4-10.8)
[2024-10-29 12:46] LABS: ALT 27 U/L (14-59); AST 21 U/L (15-37); Albumin 3.8 g/dL (3.4-5.0); Alkaline Phosphatase 74 U/L (46-116); Anion Gap 6.4 mmol/L (3-11); BUN 20 mg/dL (7-18); Bilirubin, Total 1.54 mg/dL (0.2-1.0); CO2 28.6 mmol/L (21.0-32.0); CREATININE 0.8 mg/dL (0.55-1.02); Calcium 9.5 mg/dL (8.5-10.1); Chloride 110 mmol/L (98-107); Glucose 93 mg/dL (74-106); Potassium 4.4 mmol/L (3.5-5.1); Sodium 145 mmol/L (136-145); TSH (W/Ref FT4) 1.23 uIU/mL (0.36-3.74)
== END 2024-10-29 10:45 | disposition home or self-care (01) ==
LOC: LOS 10:45
PROVIDERS: PCP Family Medicine; Visit Provider Family Medicine
DX: E03.9 Hypothyroidism, unspecified (principal); R00.2 Palpitations; I10 Essential (primary) hypertension
CPT/HCPCS: 36415; 80053; 85027; 84443

== ENCOUNTER 2025-05-17 11:01 | Outpatient (CLI) | payer MEDICARE, SELFPAY ==
[2025-05-17 12:58] LABS: ALT 28 U/L (14-59); AST 20 U/L (15-37); Albumin 3.6 g/dL (3.4-5.0); Alkaline Phosphatase 77 U/L (46-116); Anion Gap 1.1 mmol/L (3-11); BUN 17 mg/dL (7-18); Bilirubin, Total 1.9 mg/dL (0.2-1.0); CO2 32.9 mmol/L (21.0-32.0); CREATININE 0.9 mg/dL (0.55-1.02); Calcium 9.5 mg/dL (8.5-10.1); Calculated LDL 87 mg/dL (<100); Chloride 107 mmol/L (98-107); Cholesterol 171 mg/dL (<200); Estimated GFR 64.63 (mL/min/1.73m2); Glucose 86 mg/dL (74-106); HDL Cholesterol 72 mg/dL (>or=50); Potassium 4.9 mmol/L (3.5-5.1); Sodium 141 mmol/L (136-145); TSH (W/Ref FT4) 1.32 uIU/mL (0.36-3.74); Total Protein 6.9 g/dL (6.4-8.2); Triglyceride 61 mg/dL (<150); Vitamin B12 1748 pg/mL (193-986)
== END 2025-05-17 11:02 | disposition home or self-care (01) ==
LOC: LOS 11:02
PROVIDERS: PCP Family Medicine; Visit Provider Family Medicine
DX: E53.8 Deficiency of other specified B group vitamins (principal); I10 Essential (primary) hypertension; F41.9 Anxiety disorder, unspecified
CPT/HCPCS: 36415; 80053; 80061; 82607; 84443

== ENCOUNTER → 2025-09-30 09:45 | Outpatient (CLI) | payer MEDICARE, SELFPAY ==
--- NOTE | 2025-09-30 09:15 | DI.RAD_ITS ---
Exam(s) XR KNEE LT 3V AP,LAT,RON EXAM: XR KNEE LT 3V AP,LAT,RON CLINICAL HISTORY: knee pain and swelling, L KNEE PAIN M25.562. TECHNIQUE: 2D digital imaging was performed of the left knee. Three images were obtained. AP, lateral and PA tunnel views were obtained. COMPARISON: There are no priors for comparison. FINDINGS: BONES: No acute fracture is present. No bony destructive lesion is seen. JOINTS: There are mild degenerative changes seen in the left knee characterized by joint space narrowing and osteophytes. There is chondrocalcinosis in the femoral tibial joint. No joint effusion is seen. No loose body. SOFT TISSUE: Normal. IMPRESSION: 1. Mild degenerative changes seen in the left knee. 2. No acute fracture or dislocation. DATA REPOSITORY: RADIATION DOSE DELIVERED:
== END ==
LOC: DI 09:45
PROVIDERS: PCP Family Medicine; Visit Provider Physician Assistant
DX: M25.562 Pain in left knee (principal); M17.12 Unilateral primary osteoarthritis, left knee
CPT/HCPCS: 73562

== ENCOUNTER 2025-09-30 11:51 | Outpatient (CLI) | payer MEDICARE, SELFPAY ==
[2025-10-01 09:39] LABS: Lyme Ab w Rflx to Lyme Confirm Negative (Negative)
[2025-10-03 17:17] LABS: B. miyamotoi PCR Negative (Negative); Babesia divergens/MO-1 Negative (Negative); Ehrlichia muris eauclairensis Negative (Negative)
== END 2025-09-30 11:52 | disposition home or self-care (01) ==
LOC: LBO 11:51
PROVIDERS: PCP Family Medicine; Visit Provider Physician Assistant
DX: M25.562 Pain in left knee (principal)
CPT/HCPCS: 36415; 87798; 86618

== ENCOUNTER → 2025-11-24 12:59 | Outpatient (CLI) | payer MEDICARE, SELFPAY ==
--- NOTE | 2025-11-24 07:15 | DI.US_ITS ---
Exam(s) US SOFT TISSUE EXTREMITY EXAM: US SOFT TISSUE EXTREMITY CLINICAL HISTORY: ? Bakers cyst, KNEE EFFUSION, LEFT KNEE EDEMA, M25.462, R60.9. TECHNIQUE: Ultrasound was performed using standard protocol. COMPARISON: CR XR KNEE LT 3V AP,LAT,RON from 09/30/2025 FINDINGS: Sonographic assessment utilizing grayscale and color Doppler imaging was performed and targeted to the area of clinical concern in the popliteal fossa. There is no evidence of a Faria's cyst. There is a joint effusion which is measured at 3.4 x 0.8 x 3 cm.. IMPRESSION: Joint effusion. No evidence of Faria's cyst. DATA REPOSITORY:
== END ==
LOC: DI 12:59
PROVIDERS: PCP Family Medicine; Visit Provider Family Medicine
DX: M25.462 Effusion, left knee (principal); R60.9 Edema, unspecified
CPT/HCPCS: 76881